=== PATIENT | female | born 1960 | race African-American/Black ===

== ENCOUNTER 2022-04-25 16:01 | Emergency (ER) | payer OTHER ==
[~2022-04-25] VITALS: Ht 157.5 cm; Wt 105.6 kg
[2022-04-25 16:56] LABS: Albumin 3.8 g/dL (3.4-5.0); BUN/Creatinine Ratio 15.4; Calcium 9.2 mg/dL (8.5-10.1); Potassium 3.5 mmol/L (3.5-5.1)
[2022-04-25 16:59] LABS: Bilirubin, Total 0.5 mg/dL (0.2-1.0); Total Protein 8.1 g/dL (6.4-8.2)
[2022-04-25] MEDS ORDERED: LABETALOL HCL 5 MG/ML 4ML SYRINGE IV ONE (17:00)
[2022-04-25 17:07] LABS: White Blood Cell 5.3 10^3/uL (4.4-10.8)
[2022-04-25 17:56] LABS: Basophils # (auto) 0 10 ^3/uL (0-0.2); Basophils % (auto) 0.8 % (0.0-2.0); Eosinophils # (auto) 0.1 10 ^3/uL (0-0.8); Eosinophils % (auto) 1.8 % (0.0-7.0); Hematocrit 42.7 % (36.0-46.0); Hemoglobin 14.2 g/dL (12.2-16.2); Lymphocytes # (auto) 1.9 10 ^3/uL (0.4-5.4); Lymphocytes % (auto) 34.9 % (10.0-50.0); Mean Corpuscular Hgb Conc. 33.1 g/dL (32.0-36.0); Mean Corpuscular Volume 81.6 fL (80.0-100.0); Monocytes # (auto) 0.4 10 ^3/uL (0-1.3); Monocytes % (auto) 7.1 % (0.0-12.0); Neutrophils % (auto) 55.4 % (37.0-80.0); Nucleated Red Blood Cells % 0.2 %; Red Blood Cells 5.24 10^6/uL (4.0-5.20); Red Cell Distribution Width 13.5 % (11.8-14.3)
[2022-04-25] MEDS ORDERED: METOPROLOL TARTRATE 25 MG TAB PO ONE (18:45)
[2022-04-25] MEDS ORDERED: HYDROcodone-ACET 5/325MG TAB PO ONE (19:15)
[2022-04-25 22:32] VITALS: BP 150/70
== END 2022-04-25 22:55 | disposition home or self-care (01) ==
LOC: ER 16:01
DX: S09.90XA Unspecified injury of head, initial encounter (principal); I10 Essential (primary) hypertension; Z88.0 Allergy status to penicillin; W19.XXXA Unspecified fall, initial encounter; Y93.89 Activity, other specified; Y92.89 Other specified places as the place of occurrence of the external cause; Y99.8 Other external cause status
CPT/HCPCS: 36415; 70450; 72125; 80053; 85025; 93005; 96374; 99285; J3490

== ENCOUNTER → 2023-02-11 | Outpatient (CLI) | payer BC ==
[2023-02-11 13:19] LABS: Basophils # (auto) 0 10 ^3/uL (0-0.2); Basophils % (auto) 0.9 % (0.0-2.0); Eosinophils # (auto) 0.1 10 ^3/uL (0-0.8); Eosinophils % (auto) 2.9 % (0.0-7.0); Hematocrit 40.4 % (36.0-46.0); Hemoglobin 13.3 g/dL (12.2-16.2); Lymphocytes # (auto) 1.3 10 ^3/uL (0.4-5.4); Lymphocytes % (auto) 27.3 % (10.0-50.0); Mean Corpuscular Hemoglobin 27.2 pg (28.0-32.0); Mean Corpuscular Hgb Conc. 32.8 g/dL (32.0-36.0); Mean Corpuscular Volume 82.8 fL (80.0-100.0); Monocytes # (auto) 0.4 10 ^3/uL (0-1.3); Neutrophils % (auto) 59.9 % (37.0-80.0); Nucleated Red Blood Cells % 0.1 %; Red Blood Cells 4.87 10^6/uL (4.0-5.20); Red Cell Distribution Width 13.1 % (11.8-14.3); White Blood Cell 4.9 10^3/uL (4.4-10.8)
[2023-02-11 13:25] LABS: Urine Bacteria NONE SEEN /hpf (None Seen); Urine Blood Negative /uL (Negative); Urine Clarity Clear (Clear); Urine Color Colorless (Yellow); Urine Protein, UAD Negative (Negative); Urine Specific Gravity 1.016 (1.001-1.035); Urine Urobilinogen Normal (Negative); Urine WBC <1 /hpf (0 - 5)
[2023-02-11 15:00] LABS: Alanine Aminotransferase 18 U/L (7-40); Alkaline Phosphatase 82 U/L (46-116); Anion Gap 4 (5-15); BUN/Creatinine Ratio 9.8 (10.0-20.0); Blood Urea Nitrogen 8 mg/dL (9-23); Calcium 8.9 mg/dL (8.5-10.1); Carbon Dioxide 29 mmol/L (20-30); Chloride 103 mmol/L (98-107); Glucose 256 mg/dL (74-106); Potassium 3.9 mmol/L (3.5-5.1); Sodium 136 mmol/L (136-145)
[2023-02-11 15:02] LABS: Albumin 4.3 g/dL (3.2-4.8); Aspartate Aminotransferase 13 U/L (13-40); Bilirubin, Total 0.6 mg/dL (0.2-1.0); Total Protein 7.3 g/dL (5.7-8.2)
[2023-02-11 16:09] LABS: Uric Acid 3.6 mg/dL (3.1-7.8)
[2023-02-11 16:11] LABS: Magnesium 2.1 mg/dL (1.6-2.6)
[2023-02-11 19:34] LABS: Folate (Folic Acid) 14.37 ng/mL (>5.38)
[2023-02-12 09:06] LABS: Triglycerides 87 mg/dL (< 150)
[2023-02-12 09:07] LABS: LDL Cholesterol 139 mg/dL (< 100)
[2023-02-12 09:08] LABS: Cholesterol 194 mg/dL (< 200); HDL Cholesterol 36 mg/dL (40-59)
== END | disposition home or self-care (01) ==
LOC: LAB 12:41
PROVIDERS: ATTEND Internal Medicine
DX: E61.9 Deficiency of nutrient element, unspecified (principal); R78.89 Finding of other specified substances, not normally found in blood; E78.9 Disorder of lipoprotein metabolism, unspecified; R68.89 Other general symptoms and signs; R94.6 Abnormal results of thyroid function studies; E79.0 Hyperuricemia without signs of inflammatory arthritis and tophaceous disease; R82.991 Hypocitraturia; E85.9 Amyloidosis, unspecified; R82.90 Unspecified abnormal findings in urine; R82.79 Other abnormal findings on microbiological examination of urine; D51.9 Vitamin B12 deficiency anemia, unspecified
CPT/HCPCS: 36415; 80053; 80061; 81001; 82306; 82607; 82746; 83036; 83735; 84443; 84550; 85025; 87086

== ENCOUNTER → 2023-07-22 | Outpatient (CLI) | payer BC ==
[2023-07-22 08:26] LABS: Basophils # (auto) 0 10 ^3/uL (0-0.2); Basophils % (auto) 0.9 % (0.0-2.0); Eosinophils # (auto) 0.1 10 ^3/uL (0-0.8); Eosinophils % (auto) 2.7 % (0.0-7.0); Hemoglobin 13.7 g/dL (12.2-16.2); Lymphocytes # (auto) 1.2 10 ^3/uL (0.4-5.4); Lymphocytes % (auto) 26.8 % (10.0-50.0); Mean Corpuscular Hemoglobin 27.5 pg (28.0-32.0); Mean Corpuscular Hgb Conc. 33.4 g/dL (32.0-36.0); Mean Corpuscular Volume 82.1 fL (80.0-100.0); Monocytes # (auto) 0.3 10 ^3/uL (0-1.3); Monocytes % (auto) 7.1 % (0.0-12.0); Neutrophils # (auto) 2.7 10 ^3/uL (1.6-8.6); Neutrophils % (auto) 62.5 % (37.0-80.0); Nucleated Red Blood Cells % 0.4 %; Red Cell Distribution Width 12.7 % (11.8-14.3); White Blood Cell 4.3 10^3/uL (4.4-10.8)
[2023-07-22 08:30] LABS: Urine Bacteria MANY /hpf (None Seen); Urine Blood Negative /uL (Negative); Urine Clarity Clear (Clear); Urine Color Light-Yellow (Yellow); Urine Protein, UAD Negative (Negative); Urine Specific Gravity 1.014 (1.001-1.035); Urine Urobilinogen Normal (Negative); Urine WBC 2 /hpf (0 - 5); Urine pH 6.5 (5.0-9.0)
[2023-07-22 09:04] LABS: Alanine Aminotransferase 12 U/L (7-40); Albumin 4.2 g/dL (3.2-4.8); Alkaline Phosphatase 94 U/L (46-116); Anion Gap 6 (5-15); Aspartate Aminotransferase 15 U/L (13-40); Blood Urea Nitrogen 12 mg/dL (9-23); Calcium 9.8 mg/dL (8.5-10.1); Carbon Dioxide 30 mmol/L (20-30); Chloride 105 mmol/L (98-107); Glucose 101 mg/dL (74-106); Sodium 141 mmol/L (136-145); Triglycerides 106 mg/dL (< 150)
[2023-07-22 09:05] LABS: Cholesterol 203 mg/dL (< 200); LDL Cholesterol 142 mg/dL (< 100)
[2023-07-22 09:06] LABS: Bilirubin, Total 0.6 mg/dL (0.2-1.0); HDL Cholesterol 35 mg/dL (40-59); Total Protein 7.5 g/dL (5.7-8.2)
[2023-07-22 13:36] LABS: Folate (Folic Acid) 12.5 ng/mL (>5.38)
== END | disposition home or self-care (01) ==
LOC: LAB 08:01
PROVIDERS: ATTEND Internal Medicine
DX: E79.0 Hyperuricemia without signs of inflammatory arthritis and tophaceous disease (principal); D51.9 Vitamin B12 deficiency anemia, unspecified; R82.90 Unspecified abnormal findings in urine; R82.79 Other abnormal findings on microbiological examination of urine; E55.9 Vitamin D deficiency, unspecified; R94.6 Abnormal results of thyroid function studies; R68.89 Other general symptoms and signs; R73.09 Other abnormal glucose; E61.2 Magnesium deficiency
CPT/HCPCS: 36415; 80053; 80061; 81001; 82306; 82607; 82746; 83036; 83735; 84443; 84550; 85025; 87086

== ENCOUNTER → 2024-04-14 | Outpatient (CLI) | payer BC ==
[2024-04-14 08:49] LABS: Basophils # (auto) 0 10 ^3/uL (0-0.2); Basophils % (auto) 0.9 % (0.0-2.0); Eosinophils # (auto) 0.1 10 ^3/uL (0-0.8); Hematocrit 42.2 % (36.0-46.0); Hemoglobin 13.9 g/dL (12.2-16.2); Lymphocytes # (auto) 1.5 10 ^3/uL (0.4-5.4); Lymphocytes % (auto) 32.5 % (10.0-50.0); Mean Corpuscular Hemoglobin 27.1 pg (28.0-32.0); Mean Corpuscular Hgb Conc. 32.8 g/dL (32.0-36.0); Mean Corpuscular Volume 82.5 fL (80.0-100.0); Monocytes # (auto) 0.6 10 ^3/uL (0-1.3); Monocytes % (auto) 12.3 % (0.0-12.0); Neutrophils # (auto) 2.3 10 ^3/uL (1.6-8.6); Neutrophils % (auto) 51.3 % (37.0-80.0); Nucleated Red Blood Cells % 0.1 %; Platelet Count (auto) 287 10^3/uL (140-450); Red Blood Cells 5.12 10^6/uL (4.0-5.20); Red Cell Distribution Width 13.3 % (11.8-14.3); White Blood Cell 4.5 10^3/uL (4.4-10.8)
[2024-04-14 09:46] LABS: Urine Bacteria MOD /hpf (None Seen); Urine Blood Negative /uL (Negative); Urine Clarity Clear (Clear); Urine Color Light-Yellow (Yellow); Urine Mucus FEW (None Seen); Urine Protein, UAD Negative (Negative); Urine Specific Gravity 1.016 (1.001-1.035); Urine Squamous Epithelial Cell FEW /hpf (<5); Urine Urobilinogen Normal (Negative); Urine WBC 1 /HPF (0-5)
[2024-04-14 09:55] LABS: Alanine Aminotransferase 17 U/L (7-40); Albumin 4.5 g/dL (3.2-4.8); Alkaline Phosphatase 95 U/L (46-116); Anion Gap 5 (5-15); Aspartate Aminotransferase 14 U/L (13-40); BUN/Creatinine Ratio 14.3 (10.0-20.0); Blood Urea Nitrogen 14 mg/dL (9-23); Calcium 9.5 mg/dL (8.7-10.4); Carbon Dioxide 29 mmol/L (20-31); Chloride 104 mmol/L (98-107); Cholesterol 153 mg/dL (< 200); Glucose 104 mg/dL (74-106); Magnesium 2.1 mg/dL (1.6-2.6); Potassium 3.9 mmol/L (3.5-5.1); Sodium 138 mmol/L (136-145); Triglycerides 68 mg/dL (< 150)
[2024-04-14 09:56] LABS: Bilirubin, Total 0.5 mg/dL (0.2-1.0); Total Protein 7.4 g/dL (5.7-8.2)
[2024-04-14 10:06] LABS: HDL Cholesterol 39 mg/dL (40-59); LDL Cholesterol 105 mg/dL (< 100)
[2024-04-14 10:36] LABS: Uric Acid 5.1 mg/dL (3.1-7.8)
[2024-04-14 10:44] LABS: Folate (Folic Acid) 13.35 ng/mL (>5.38)
== END | disposition home or self-care (01) ==
LOC: LAB 08:25
PROVIDERS: ATTEND Internal Medicine
DX: D51.9 Vitamin B12 deficiency anemia, unspecified (principal); E55.9 Vitamin D deficiency, unspecified; E61.2 Magnesium deficiency; E78.49 Other hyperlipidemia; R94.6 Abnormal results of thyroid function studies; R82.90 Unspecified abnormal findings in urine; R68.89 Other general symptoms and signs; R79.89 Other specified abnormal findings of blood chemistry; R82.998 Other abnormal findings in urine; R73.09 Other abnormal glucose; R94.4 Abnormal results of kidney function studies
CPT/HCPCS: 36415; 80053; 80061; 81001; 82306; 82607; 82746; 83036; 83735; 84443; 84550; 85025; 87086

== ENCOUNTER 2024-12-07 12:20 | Inpatient (IN) | payer BC ==
[~2024-12-07] VITALS: Ht 157.5 cm; Wt 113.6 kg
--- NOTE | 2024-12-07 12:59 | ED.PDOC ---
History of Present Illness HPI Comments 64 year old female presents to the ED with a chief complaint of abnormal labs onset today (12/07/24). Patient states she was at her pre-op appointment with Dr. Jefferson, EKG was done, was recommended to come to ED. EKG from Dr. Jefferson was showing a-fib RVR. Patient states she is currently experiencing headache, has no other complaints. She also states she was recently diagnosed with CHF, is currently taking Lasix. Denies chest pain, shortness of breath, fever, chills, nausea, vomiting, diarrhea. No other symptoms or modifying factors present at this time. Chief Complaint: Abnormal LAB's Time Seen by MD: 12:45 Reviewed Notes: Medications, Allergies Allergies: Coded Allergies: Penicillins (Verified Allergy, Unknown, 04/25/22) Information Source: Patient Mode of Arrival: Wheelchair Severity: Moderate Timing: Hours Duration: Since onset Prehospital treatment: 12 Lead EKG Past Medical History PAST MEDICAL HISTORY: CHF, HTN Surgical History: Denies all surgeries ECHOCARDIOGRAPHY RADIOLOGY TECHNOLOGIST History: No Pertinent ECHOCARDIOGRAPHY RADIOLOGY TECHNOLOGIST History Family History Family History: Reviewed,noncontributory to illness Social History Smoker: Non-Smoker Alcohol: Denies ETOH Use Drugs: Denies Drug Use Lives In: Home Constitutional: denies: chills, diaphoresis, fatigue, fever, malaise, sweats, weakness, others EENTM: denies: blurred vision, double vision, ear bleeding, ear discharge, ear drainage, ear pain, ear ringing, eye pain, eye redness, hearing loss, mouth pain, mouth swelling, nasal discharge, nose bleeding, nose congestion, nose pain, photophobia, tearing, throat pain, throat swelling, voice changes, others Respiratory: denies: cough, hemoptysis, orthopnea, SOB at rest, shortness of breath, SOB with excertion, stridor, wheezing, others Cardiovascular: denies: chest pain, dizzy spells, diaphoresis, Dyspnea on exertion, edema, irregular heart beat, left arm pain, lightheadedness, palpitations, PND, syncope, others Gastrointestinal: denies: abdomen distended, abdominal pain, blood streaked bowels, constipated, diarrhea, dysphagia, difficulty swallowing, hematemesis, melena, nausea, poor appetite, poor fluid intake, rectal bleeding, rectal pain, vomiting, others Genitourinary: denies: abnormal vagina bleeding, burning, dyspareunia, dysuria, flank pain, frequency, hematuria, incontinence, pain, , vagina dischar ge, urgency, others Neurological: reports: headache; denies: dizziness, fainting, left sided numbness, left sided weakness, numbness, paresthesia, pre-existing deficit, right sided numbness, right sided weakness, seizure, speech problems, tingling, tremors, weakness, others Musculoskeletal: denies: back pain, gout, joint pain, joint swelling, muscle pain, muscle stiffness, neck pain, others Integumetry: denies: bruises, change in color, change in hair/nails, dryness, laceration, lesions, lumps, rash, wounds, others Allergic/Immunocompromised: denies: Difficulty Healing, Frequent Infections, Hives, Itching, others Hematologic/Lymphatic: denies: anemia, blood clots, easy bleeding, easy bruising, swollen glands, others Endocrine: denies: excessive hunger, excessive sweating, excessive thirst, excessive urination, flushing, intolerance to cold, intolerance to heat, unexplained weight gain, unexplained weight loss, others Psychiatric: denies: anxiety, bipolar disorder, depression, hopeless, panic disorder, schizophrenia, sleepless, suicidal, others All Other Systems: Reviewed and Negative Physical Exam General Appearance: Other (Chronically ill-appearing) HEENT: Pharynx Normal Neck: Normal Inspection Respiratory: No Respiratory Distress Cardiovascular: No Edema Breast Exam: Deferred Gastrointestinal: Non Tender Genitalia: Deferred Pelvic: Deferred Rectal: Deferred Extremities: Leg edema Neurologic: Disoriented Cerebellar Function: NOT DONE Reflexes: NOT DONE Skin: Mottled Lymphatic: NOT DONE Was a procedure done? Was a procedure done?: No Differential Dx Considerations may include: Pacemaker malfunction, ACS, CVA X-Ray, Labs, Meds, VS Vital Signs Date Time Temp Pulse Resp B/P (MAP) Pulse Ox O2 Delivery O2 Flow Rate FiO2 12/07/24 12:30 131 18 139/76 98 Lab Test 12/07/24 14:48 12/07/24 13:19 Range/Units Troponin I High Sensitivity 4 4 </=34 ng/L White Blood Count 5.2 4.4-10.8 10^3/uL Red Blood Count 5.37 H 4.0-5.20 10^6/uL Hemoglobin 14.6 12.2-16.2 g/dL Hematocrit 43.8 36.0-46.0 % Mean Corpuscular Volume 81.4 80.0-100.0 fL Mean Corpuscular Hemoglobin 27.1 L 28.0-32.0 pg Mean Corpuscular Hemoglobin Concent 33.3 32.0-36.0 g/dL Red Cell Distribution Width 12.9 11.8-14.3 % Platelet Count 364 140-450 10^3/uL Mean Platelet Volume 8.7 6.9-10.8 fL Neutrophils (%) (Auto) 50.5 37.0-80.0 % Lymphocytes (%) (Auto) 37.3 10.0-50.0 % Monocytes (%) (Auto) 9.7 0.0-12.0 % Eosinophils (%) (Auto) 1.8 0.0-7.0 % Basophils (%) (Auto) 0.7 0.0-2.0 % Neutrophils # (Auto) 2.6 1.6-8.6 10 ^3/uL Lymphocytes # (Auto) 1.9 0.4-5.4 10 ^3/uL Monocytes # (Auto) 0.5 0-1.3 10 ^3/uL Eosinophils # (Auto) 0.1 0-0.8 10 ^3/uL Basophils # (Auto) 0 0-0.2 10 ^3/uL Nucleated Red Blood Cells 0.2 % Sodium Level 142 136-145 mmol/L Potassium Level 3.3 L 3.5-5.1 mmol/L Chloride Level 105 98-107 mmol/L Carbon Dioxide Level 26 20-31 mmol/L Anion Gap 11 5-15 Blood Urea Nitrogen 8 L 9-23 mg/dL Creatinine 0.85 0.550-1.02 mg/dL Glomerular Filtration Rate Calc 77 >90 mL/min BUN/Creatinine Ratio 9.4 L 10.0-20.0 Serum Glucose 86 74-106 mg/dL Calcium Level 8.9 8.7-10.4 mg/dL B-Type Natriuretic Peptide 238.51 0-100 pg/mL Time of 1ST Reevaluation: 13:15 Reevaluation 1ST: Unchanged Patient Education/Counseling: Diagnosis, Treatment, Prognosis Family Education/Counseling: No Family Present SEPSIS Sepsis Screen Date sepsis recognized/suspect: Dec 07, 2024 Time Sepsis recognized/suspect: 1230 Recent Procedure: No On Antibiotic Therapy: No Respiratory Rate >20: No Heart Rate >90: Yes Temp<36 C (96.8 F) or >38.3 C: No SBP <90 or MAP <65 mmHG: No New Acute Mental Status Change: No Is the patient on CPAP, BIPAP,: No Physician Orders Urinalysis (12/07/24 12:41) Chest Portable (12/07/24 12:41) Electrocardigram (12/07/24 12:41) Troponin-I Hs (12/07/24 15:41) Electrocardigram (12/07/24 13:41) Electrocardigram (12/07/24 15:41) Vital Signs Date Time Temp Pulse Resp B/P (MAP) Pulse Ox O2 Delivery O2 Flow Rate FiO2 12/07/24 12:30 131 18 139/76 98 Laboratory Tests Test 12/07/24 13:19 White Blood Count 5.2 10^3/uL (4.4-10.8) Departure 1 Departure Time of Disposition: 15:42 (Patient with concern for pacemaker malfunction. We will admit patient for further workup and expert consultation) Impression: Primary Impression: Generalized weakness Additional Impression: Pacemaker Disposition: 09 ADMITTED INPATIENT Admit to: Med Surg Condition: Guarded Critical Care Note Critical Care Time?: No Stability Stability form required: No I personally scribed for FREDDY FLORES MD ([email or web address]) on 12/07/24 at 12:59. Electronically submitted by Alaina Nieves ([email or web address]). FREDDY FLORES MD Dec 07, 2024 12:59
--- NOTE | 2024-12-07 13:23 | DVH ---
EXAM: XY CHEST PORTABLE Indication: afib Technique: Single frontal view of the chest was obtained Comparison: None FINDINGS: Lines and Tubes: None Lungs: No focal consolidation. Pleura: No effusion. No pneumothorax. Cardiomediastinal contours: Unremarkable. Atherosclerotic vascular calcifications of the thoracic ao rta are noted. Bones: No acute osseous abnormality. IMPRESSION: No acute cardiopulmonary disease.
[2024-12-07 14:07] LABS: Hematocrit 43.8 % (36.0-46.0); Hemoglobin 14.6 g/dL (12.2-16.2); Mean Corpuscular Hemoglobin 27.1 pg (28.0-32.0); Mean Corpuscular Volume 81.4 fL (80.0-100.0); Nucleated Red Blood Cells % 0.2 %
[2024-12-07 14:14] LABS: Chloride 105 mmol/L (98-107); Sodium 142 mmol/L (136-145)
[2024-12-07 14:15] LABS: Anion Gap 11 (5-15); Carbon Dioxide 26 mmol/L (20-31)
[2024-12-07 14:16] LABS: Calcium 8.9 mg/dL (8.7-10.4)
[2024-12-07 14:17] LABS: Potassium 3.3 mmol/L (3.5-5.1)
[2024-12-07 14:20] LABS: BUN/Creatinine Ratio 9.4 (10.0-20.0); Glucose 86 mg/dL (74-106)
[2024-12-07 14:23] LABS: Blood Urea Nitrogen 8 mg/dL (9-23)
--- NOTE | 2024-12-07 15:53 | ED.PDOC ---
Departure 1 Departure Time of Disposition: 15:42 (With the previous impressions were entered an air in the prior note. Patient presenting with a AFib with RVR. We will started on amnio drip and will be admitted to the hospital for further workup.) Impression: Primary Impression: Generalized weakness Additional Impression: Atrial fibrillation with RVR Disposition: ADMITTED INPATIENT Admit to: Tele Condition: Guarded Comments Patient with a AFib with RVR Authorized and Performed by: Freddy Blanco MD Total critical care time: Approximately 47 minutes Due to a high probability of clinically significant, life threatening deterioration, the patient required my highest level of preparedness to intervene emergently and I personally spent this critical care time directly and personally managing the patient. This critical care time included obtaining a history; examining the patient; pulse oximetry; ordering and review of studies; arranging urgent treatment with development of a management plan; evaluation of patient's response to treatment; frequent reassessment; and, discussions with other providers. This critical care time was performed to assess and manage the high probability of imminent, life-threatening deterioration that could result in multi-organ failure. It was exclusive of separately billable procedures and treating other patients and teaching time. Please see my other sections and the rest of the note for further information on patient assessment and treatment. FREDDY BLANCO MD Dec 07, 2024 15:53
[2024-12-07] MEDS: AMIODARONE BOLUS KIT 100 ML IV ONE (16:08)
[2024-12-07] MEDS: AMIODARONE 360mg/200mL PREMIX 200 ML IV ONE (16:33)
[2024-12-07 16:55] VITALS: PULSE 117; RESP 12; O2SAT 98
[2024-12-07] MEDS: ACETAMINOPHEN 325 MG TAB PO ONE (17:01)
[2024-12-07 19:31] VITALS: PULSE 109; PULSE 117; RESP 12; RESP 15; O2SAT 96; O2SAT 98
[2024-12-07] MEDS ORDERED: NITROGLYCERIN 0.4 MG SL TAB SL PRN (19:45)
[2024-12-07] MEDS ORDERED: MORPHINE SULFATE INJ 2 MG/ml SYRG IV PRN (19:45)
[2024-12-07] MEDS ORDERED: TEMAZEPAM 15 MG CAP PO PRN (19:45)
[2024-12-07] MEDS ORDERED: ONDANSETRON HCL 4 MG/2 ML VIAL IV PRN (19:45)
[2024-12-07] MEDS: POTASSIUM CHL 20 Meq TABLET PO ONE (19:45)
[2024-12-07] MEDS ORDERED: DEXTROSE (50%) 50ML SYRG IV PRN (19:45)
[2024-12-07 20:00] VITALS: PULSE 113
[2024-12-07] MEDS: ATORVASTATIN 20 MG TAB PO SCH (21:53)
--- NOTE | 2024-12-07 22:03 | DVHHP2 ---
History of Present Illness Reason for Visit: Irregular heart rate History of Present Illness 64-year-old female presents for evaluation of irregular heart rate. Patient reports doing a preop workup for a cyst removal when they did the EKG they noted she was in AFib with RVR in the 160s. Patient denies chest pain or palpitatio ns. No shortness a breath. Past Medical History Diabetes mellitus, hypertension,? CHF Past Surgical History Denies Family History Noncontributory Smoke: No ALCOHOL: none Drugs: None Lives: with Family Review of Systems Review of Systems Review of systems are currently negative otherwise addressed in HPI. Allergies: Coded Allergies: Penicillins (Verified Allergy, Unknown, 04/25/22) Medications Current Medications Medications Dose Ordered Sig/Ioana Route Start Time Stop Time Status Last Admin Dose Admin Amiodarone HCL/ Dextrose 200 ml @ 16.66 mls/ hr Q12H IV 12/07/24 22:15 Furosemide 40 mg DAILY PO 12/08/24 10:00 Amlodipine Besylate 5 mg BID PO 12/07/24 22:00 12/07/24 21:53 5 MG Atorvastatin Calcium 20 mg HS PO 12/07/24 22:00 12/07/24 21:53 20 MG Diagnostic Test (Pha) 1 strip ACHS 12/07/24 22:00 Insulin Human Regular ACHS SC 12/07/24 22:00 Dextrose 50 ml UD PRN IV 12/07/24 19:45 Temazepam 15 mg QHSP PRN PO 12/07/24 19:45 Ondansetron HCl 4 mg Q4HP PRN IV 12/07/24 19:45 Acetaminophen 650 mg Q6HP PRN PO 12/07/24 19:45 Nitroglycerin 0.4 mg Q5MINP PRN SL 12/07/24 19:45 Morphine Sulfate 2 mg Q30M PRN IV 12/07/24 19:45 Exam Vital Signs Vital Signs Date Time Temp Pulse Resp B/P (MAP) Pulse Ox O2 Delivery O2 Flow Rate FiO2 12/07/24 21:53 133/90 12/07/24 21:00 109 24 94 12/07/24 19:31 Room Air* 0 21 12/07/24 19:29 98.4 98.4 Exam Gen: 64-year-old female in mild distress Skin: Warm, dry, normal color and texture, no rash. HEENT: Normocephalic atraumatic, mucous membranes moist and pink. Neck: Cervical and supraclavicular nodes normal without enlargement, trachea is midline, thyroid gland is normal without masses. Pulmonary: Clear to auscultation and percussion bilaterally. Cardiac: Irregular rhythm Abdomen: Soft, nontender, nondistended, bowel sounds present all 4 quadrants, no guarding, no rigidity, no organomegaly. Extremities: No cyanosis, clubbing, no edema Neuro: Cranial nerves II through XII grossly intact, normal affect and speech, no focal motor deficits. Labs/Xrays ORDERING PHYSICIAN: FREDDY FLORES MD PROCEDURE(s): CXRP - CHEST PORTABLE REASON: afib ORDER NUMBER(s): [id number], ACCESSION NUMBER(s): [id number] EXAM: XY CHEST PORTABLE Indication: afib Technique: Single frontal view of the chest was obtained Comparison: None FINDINGS: Lines and Tubes: None Lungs: No focal consolidation. Pleura: No effusion. No pneumothorax. Cardiomediastinal contours: Unremarkable. Atherosclerotic vascular c alcifications of the thoracic aorta are noted. Bones: No acute osseous abnormality. IMPRESSION: No acute cardiopulmonary disease. Labs Test 12/07/24 17:01 12/07/24 13:19 Range/Units Troponin I High Sensitivity 4 </=34 ng/L White Blood Count 5.2 4.4-10.8 10^3/uL Red Blood Count 5.37 H 4.0-5.20 10^6/uL Hemoglobin 14.6 12.2-16.2 g/dL Hematocrit 43.8 36.0-46.0 % Mean Corpuscular Volume 81.4 80.0-100.0 fL Mean Corpuscular Hemoglobin 27.1 L 28.0-32.0 pg Mean Corpuscular Hemoglobin Concent 33.3 32.0-36.0 g/dL Red Cell Distribution Width 12.9 11.8-14.3 % Platelet Count 364 140-450 10^3/uL Mean Platelet Volume 8.7 6.9-10.8 fL Neutrophils (%) (Auto) 50.5 37.0-80.0 % Lymphocytes (%) (Auto) 37.3 10.0-50.0 % Monocytes (%) (Auto) 9.7 0.0-12.0 % Eosinophils (%) (Auto) 1.8 0.0-7.0 % Basophils (%) (Auto) 0.7 0.0-2.0 % Neutrophils # (Auto) 2.6 1.6-8.6 10 ^3/uL Lymphocytes # (Auto) 1.9 0.4-5.4 10 ^3/uL Monocytes # (Auto) 0.5 0-1.3 10 ^3/uL Eosinophils # (Auto) 0.1 0-0.8 10 ^3/uL Basophils # (Auto) 0 0-0.2 10 ^3/uL Nucleated Red Blood Cells 0.2 % Sodium Level 142 136-145 mmol/L Potassium Level 3.3 L 3.5-5.1 mmol/L Chloride Level 105 98-107 mmol/L Carbon Dioxide Level 26 20-31 mmol/L Anion Gap 11 5-15 Blood Urea Nitrogen 8 L 9-23 mg/dL Creatinine 0.85 0.550-1.02 mg/dL Glomerular Filtration Rate Calc 77 >90 mL/min BUN/Creatinine Ratio 9.4 L 10.0-20.0 Serum Glucose 86 74-106 mg/dL Calcium Level 8.9 8.7-10.4 mg/dL B-Type Natriuretic Peptide 238.51 0-100 pg/mL SEPSIS Sepsis Screen Date sepsis recognized/suspect: Dec 07, 2024 Time Sepsis recognized/suspect: 1930 Recent Procedure: No On Antibiotic Therapy: No Respiratory Rate >20: No Heart Rate >90: Yes Temp<36 C (96.8 F) or >38.3 C: No SBP <90 or MAP <65 mmHG: No New Acute Mental Status Change: No Is the patient on CPAP, BIPAP,: No Physician Orders Amiodarone 360mg/200ml Premix (Nexterone (12/07/24 16:15) Amiodarone 360mg/200ml Premix (Nexterone (12/07/24 22:15) Thyroid Stimulating Hormone (12/07/24 19:34) * Cardiology Consult (12/07/24 19:34) Furosemide Tablet (Lasix Tablet) (12/08/24 10:00) Amlodipine Tablet (Norvasc Tablet) (12/07/24 22:00) Atorvastatin (Lipitor) (12/07/24 22:00) Basic Metabolic Panel (12/08/24 04:00) Glucose Blood (Accu-Chek Comfort Curve T (12/07/24 22:00) Insulin R (Human) (Insulin R) (12/07/24 22:00) Dextrose 50% Syringe (12/07/24 19:45) Admit (12/07/24 19:34) Temazepam (Restoril) (12/07/24 19:45) Ondansetron Hcl (Zofran) (12/07/24 19:45) Cardiac Diet-2gna,Lofat,Lochol (12/08/24 Breakfast) Echo 2d Mode Cardiac Dop (12/07/24:34) Condition: Fair (12/07/24:34) Acetaminophen Tablet (Tylenol Tablet) (12/07/24 19:45) Bedrest With Bathroom Privileg (12/07/24:34) Nitroglycerin Sublingual (Ntrostat Subli (12/07/24 19:45) Morphine Sulfate Injection (12/07/24 19:45) Stat Ekg For Chest Pain (12/07/24:34) Notify Md Of Changes From Base (12/07/24:34) Community Health Advocate For 24 Hours (12/07/24:34) Emergency Dysrhythmia Protocol (12/07/24:34) Rhythm Strips Once Every Shift (12/07/24 19:34) Oxygen By Nasal Cannula (12/07/24:34) Vital Signs Date Time Temp Pulse Resp B/P (MAP) Pulse Ox O2 Delivery O2 Flow Rate FiO2 12/07/24 21:53 133/90 12/07/24 21:00 109 24 133/90 (104) 94 12/07/24 20:00 102 12/07/24 19:31 109 15 96 Room Air* 0 21 12/07/24 19:29 98.4 109 15 113/92 (99) 96 98.4 12/07/24 17:14 103 12/07/24 17:02 131 21 138/91 (107) 96 12/07/24 16:55 117 12 98 Room Air* 0 21 12/07/24 15:48 130/87 (101) Laboratory Tests Test 12/07/24 13:19 White Blood Count 5.2 10^3/uL (4.4-10.8) Medications Medications Dose Ordered Sig/Ioana Route Start Time Stop Time Status Last Admin Dose Admin Acetaminophen 650 mg ONCE ONCE PO 12/07/24 17:00 12/07/24 17:01 DC 12/07/24 17:01 650 MG Amiodarone HCl 100 ml @ 600 mls/hr ONCE ONCE IV 12/07/24 16:00 12/07/24 16:09 DC 12/07/24 16:08 600 MLS/HR Amiodarone HCL/ Dextrose 200 ml @ 33.33 mls/ hr ONCE ONCE IV 12/07/24 16:15 12/07/24 22:15 12/07/24 16:33 33.33 MLS/HR Amlodipine Besylate 5 mg BID PO 12/07/24 22:00 12/07/24 21:53 5 MG Atorvastatin Calcium 20 mg HS PO 12/07/24 22:00 12/07/24 21:53 20 MG Potassium Chloride 40 meq ONCE ONCE PO 12/07/24 19:45 12/07/24 19:57 DC 12/07/24 19:45 40 MEQ Assessment/Plan Assessment/Plan Assessment AFib with RVR Diabetes mellitus Hypertension Plan Admit the patient to telemetry to the hospitalist Cardiology consultation Continue amiodarone drip Resume home medications Continue treatment per orders. Plan discussed with: Patient My Orders Orders - NEERAJ CARD Procedure Category Date Status Time Thyroid Stimulating LAB 12/07/24 In Process Hormone 19:34 * Cardiology Consult CONS 12/07/24 Transmitted 19:34 Furosemide Tablet PHA 12/08/24 In Process (Lasix Tablet) 10:00 Amlodipine Tablet PHA 12/07/24 In Process (Norvasc Tablet) 22:00 Atorvastatin (Lipitor) PHA 12/07/24 In Process 22:00 Basic Metabolic Panel LAB 12/08/24 Verified 04:00 Glucose Blood PHA 12/07/24 In Process (Accu-Chek Comfort 22:00 Insulin R (Human) PHA 12/07/24 In Process (Insulin R) 22:00 Dextrose 50% Syringe PHA 12/07/24 In Process 19:45 Admit ADMIT 12/07/24 Transmitted 19:34 Temazepam (Restoril) PHA 12/07/24 In Process 19:45 Ondansetron Hcl PHA 12/07/24 In Process (Zofran) 19:45 Cardiac DIET 12/08/24 Transmitted Diet-2gna,Lofat,Lochol Breakfast Echo 2d Mode Cardiac US 12/07/24 Logged DOP 19:34 Condition: Fair [facility] 12/07/24 In Process 19:34 Acetaminophen Tablet PHA 12/07/24 In Process (Tylenol Tablet) 19:45 Bedrest With Bathroom [facility] 12/07/24 In Process Privileg 19:34 Nitroglycerin [facility] 12/07/24 In Process Sublingual (Ntrostat 19:45 Morphine Sulfate [facility] 12/07/24 In Process Injection 19:45 Stat Ekg For Chest [facility] 12/07/24 In Process Pain 19:34 Notify Md Of Changes [facility] 12/07/24 In Process From Base 19:34 Community Health Advocate For [facility] 12/07/24 In Process 24 Hours 19:34 Emergency Dysrhythmia [facility] 12/07/24 In Process Protocol 19:34 Rhythm Strips Once [facility] 12/07/24 In Process Every Shift 19:34 Oxygen By Nasal RT 12/07/24 Transmitted Cannula 19:34 Date of Service: Dec 07, 2024 Billing Provider: NEERAJ CARD Common Visit Codes: [id number] INP/OBS CARE (HIGH) NEERAJ CARD Dec 07, 2024 22:03
[2024-12-07] MEDS: AMIODARONE 360mg/200mL PREMIX 200 ML IV SCH (22:15)
[2024-12-07] MEDS: InsuLIN REG 1unit/0.01ml Soln (100units/ml) SC SCH (22:25)
[2024-12-07] MEDS: ACCU-CHEK COMFORT CURVE STRIP VI SCH (22:25)
[2024-12-07 22:34] VITALS: PULSE 105; RESP 20; TEMP 98.7; O2SAT 99
[2024-12-07 22:39] LABS: Triglycerides 81 mg/dL (< 150)
[2024-12-07 22:41] LABS: Cholesterol 141 mg/dL (< 200)
[2024-12-07 22:44] LABS: HDL Cholesterol 34 mg/dL (40-59)
[2024-12-07 23:12] LABS: Urine Protein, UAD Negative (Negative)
[2024-12-08] VITALS (8 sets, daily range): BP systolic 110–131; BP diastolic 71–89; PULSE 91–116; RESP 17–19; TEMP 97.5–98; O2SAT 96–98
[2024-12-08] MEDS ORDERED: TRIA0.5C TOP (05:17)
[2024-12-08] MEDS ORDERED: ATOR20TA50 PO (05:17)
[2024-12-08] MEDS ORDERED: UBRO50TA2 PO (05:17)
[2024-12-08] MEDS ORDERED: LISI40TA16 PO (05:17)
[2024-12-08] MEDS ORDERED: FURO40TA4 PO (05:17)
[2024-12-08] MEDS ORDERED: TACR0.1O7 TOP (05:17)
[2024-12-08] MEDS ORDERED: OMEP1CAP70 PO (05:17)
[2024-12-08] MEDS ORDERED: CICL80AE2 IN (05:17)
[2024-12-08] MEDS ORDERED: ALBU108A5 INH (05:17)
[2024-12-08] MEDS ORDERED: TIRZ5INJ (05:17)
[2024-12-08] MEDS ORDERED: AMLO1TAB22 PO (05:17)
[2024-12-08] MEDS ORDERED: ASPI1TAB20 PO (05:19)
[2024-12-08] MEDS ORDERED: TRIO1TP TOP (05:19)
[2024-12-08 07:18] LABS: Chloride 106 mmol/L (98-107); Potassium 3.9 mmol/L (3.5-5.1); Sodium 140 mmol/L (136-145)
[2024-12-08 07:19] LABS: Anion Gap 9 (5-15); Carbon Dioxide 25 mmol/L (20-31)
[2024-12-08 07:24] LABS: Glucose 101 mg/dL (74-106)
[2024-12-08 07:25] LABS: BUN/Creatinine Ratio 11.5 (10.0-20.0); Blood Urea Nitrogen 10 mg/dL (9-23); Calcium 8.6 mg/dL (8.7-10.4)
[2024-12-08] MEDS: FUROSEMIDE 40 MG TAB PO SCH (10:06)
[2024-12-08] MEDS ORDERED: METOPROLOL TARTRATE 25 MG TAB PO ONE (10:30)
--- NOTE | 2024-12-08 10:40 | DVHINCON2 ---
Date Seen: Dec 08, 2024 Referring Physician NEY To Reason for Consultation Afib History of Present Illness This is a 64-year-old female patient who presents to the emergency room after being sent from her preop evaluation. The patient reports that she is scheduled to undergo a cyst removal on her head with surgeon Dr. Jefferson. She states that she was at her preoperative appointment when a twelve lead electrocardiogram was done and revealed atrial fibrillation with rapid ventricular response. The patient denies any cardiac symptoms including chest pain, palpitations, shortness of breath, or dizziness. The patient states that she had no idea that her heart rate was that high or that she was in irregular rhythm because she had no symptoms. She was sent to the emergency room for further evaluation. The patient was initiated on an amiodarone drip by the emergency room provider. At the time of assessment, the patient remains in atrial fibrillation with heart rate in 110's on surveillance system monitor. Significant past medical history includes hypertension, dyslipidemia, prediabetes, asthma, breast cancer status post left mastectomy and right lumpectomy, and obesity. Past Medical History Past medical history reviewed. No other significant than mentioned above. Past Surgical History Left mastectomy in 2003 Thyroidectomy in 2004 Hysterectomy in 2006 Right lumpectomy in 2018 Family History: Hypertension G8 MOTHER Family History Family history reviewed. Social History Denies the use of tobacco, alcohol or illicit drugs. Allergies: Coded Allergies: Penicillins (Verified Allergy, Unknown, 04/25/22) Home Meds Reported Medications Aspirin (Aspir-81) 81 Mg Tab, 1 TAB PO DAILY, #90 TAB 1 Refill 12/08/24 Triamcinolone Acetonide (Kenalog) 1 Applic Ap, 1 APPLIC TOP 12/08/24 Ciclesonide (Alvesco) 80 Mcg/Act Aer, 80 MCG IN, AER 12/08/24 Triamcinolone Acetonide (Triamcinolone Acetonide) 0.5 % Cre, 1 APPLIC TOP, APPLIC 12/08/24 Lisinopril (Lisinopril) 40 Mg Tab, 1 TAB PO DAILY 12/08/24 Atorvastatin Calcium (ATORVASTATIN CALCIUM) 20 Mg Tab, 1 TAB PO DAILY 12/08/24 Amlodipine Besylate (Amlodipine Besylate) 5 Mg Tab, 1 TAB PO BID 12/08/24 Albuterol Sulfate (Albuterol Sulfate Hfa) 108 Mcg/Act Aer, INH 12/08/24 Ubrogepant (Ubrelvy) 50 Mg Tab, TAB PO 12/08/24 Tacrolimus (Tacrolimus) 0.1 % Oin, 1 APPLIC TOP BID 12/08/24 Furosemide (Furosemide) 40 Mg Tab, 1 TAB PO DAILY 12/08/24 Tirzepatide (Mounjaro) 5 Mg/0.5 Ml Inj 12/08/24 Omeprazole (Omeprazole Dr) 20 Mg Cap, 1 CAP PO DAILY 12/08/24 Home Meds Home medications reviewed. Current Medications Current Medications Medications (Trade) Dose Ordered Sig/Ioana Route PRN Reason Start Time Stop Time Status Last Admin Amiodarone HCL/ Dextrose 200 ml @ 16.66 mls/ hr Q12H IV 12/07/24 22:15 12/08/24 09:09 Furosemide (Lasix Tablet) 40 mg DAILY PO 12/08/24 10:00 12/08/24 10:06 Amlodipine Besylate (Norvasc Tablet) 5 mg BID PO 12/07/24 22:00 12/08/24 10:06 Atorvastatin Calcium (Lipitor) 20 mg HS PO 12/07/24 22:00 12/07/24 21:53 Diagnostic Test (Pha) (Accu-Chek Comfort Curve T) 1 strip ACHS 12/07/24 22:00 12/08/24 06:22 Insulin Human Regular (InsuLIN R) ACHS SC 12/07/24 22:00 12/07/24 22:25 Dextrose 50 ml UD PRN IV Blood Sugar LESS THAN 60 12/07/24 19:45 Temazepam (Restoril) 15 mg QHSP PRN PO FOR INSOMNIA 12/07/24 19:45 Ondansetron HCl (Zofran) 4 mg Q4HP PRN IV NAUSEA / VOMITING 12/07/24 19:45 Acetaminophen (Tylenol Tablet) 650 mg Q6HP PRN PO PAIN SCALE 1-3 OR TEMP>100.4 12/07/24 19:45 Nitroglycerin (Ntrostat Sublingual) 0.4 mg Q5MINP PRN SL FOR CHEST PAIN 12/07/24 19:45 Morphine Sulfate 2 mg Q30M PRN IV FOR CHEST PAIN 12/07/24 19:45 Review of Systems Constitutional: No symptom reported Ears, Nose, & Throat: No symptom reported Eyes: No symptom reported Neurological: No symptoms reported Pulmonary/Respiratory: No symptoms reported Cardiovascular: No symptom reported Gastrointestinal: No symptom reported Genitourinary: No symptom reported Musculoskeletal: No symptom reported Skin: No symptom reported Psychiatric: No symptom reported Endocrine: No symptom reported Hematologic/Lymphatic: No symptom reported Vital Signs Vital Signs Date Time Temp Pulse Resp B/P (MAP) Pulse Ox O2 Delivery O2 Flow Rate FiO2 12/08/24 10:06 110/89 12/08/24 09:00 97.5 102 18 96 97.5 12/08/24 08:15 Room Air* 0 21 Physical Exam General Appearance: Cooperative. Obese Pulmonary/Respiratory: Clear, bilateral breaths sounds. Cardiovascular/Chest: Irregularly irregular rate and rhythm Peripheral Pulses: 2+ Radial (R). 2+ Radial (L). 2+ Pedal (R). 2+ Pedal (L) Abdominal Exam: Normal bowel sounds. Ankle Exam: Bilateral nonpitting ankle edema Lower extremities: Negative lower extremity edema Neuro/Mental Status: A/OX4, coherent. Thoughts/Psych: Normal thought pattern. Appropriate mood and affect. Good judgment and insight. Appearance: No acute distress. Skin Exam: Normal inspection. Normal color. Warm and dry. Labs/Diagnostic Data Labs Test 12/08/24 06:21 12/08/24 05:22 12/07/24 22:40 12/07/24 17:01 Range/Units POC Glucose 101 70-106 mg/dl Sodium Level 140 136-145 mmol/L Potassium Level 3.9 3.5-5.1 mmol/L Chloride Level 106 98-107 mmol/L Carbon Dioxide Level 25 20-31 mmol/L Anion Gap 9 5-15 Blood Urea Nitrogen 10 9-23 mg/dL Creatinine 0.87 0.550-1.02 mg/dL Glomerular Filtration Rate Calc 75 >90 mL/min BUN/Creatinine Ratio 11.5 10.0-20.0 Serum Glucose 101 74-106 mg/dL Calcium Level 8.6 L 8.7-10.4 mg/dL Urine Color Light-yellow Yellow Urine Clarity Clear Clear Urine pH 6.5 5.0-9.0 Urine Specific [place] 1.015 1.001-1.035 Urine Protein Negative Negative Urine Ketones Negative Negative Urine Blood Negative Negative /uL Urine Nitrite Negative Negative Urine Bilirubin Negative Negative Urine Urobilinogen Normal Negative mg/dL Urine Leukocyte Esterase Negative Negative /uL Urine RBC None seen 0 - 4 /hpf Urine Microscopic WBC 1 0-5 /HPF Urine Squamous Epithelial Cells Few <5 /hpf Urine Bacteria Few H None Seen /hpf Urine Hyaline Casts Few 0 - 2 /lpf Urine Glucose Normal Normal mg/dL Troponin I High Sensitivity 4 </=34 ng/L Thyroid Stimulating Hormone (TSH) 1.73 0.55-4.78 uIU/mL Test 12/07/24 14:48 12/07/24 13:19 Range/Units Triglycerides Level 81 < 150 mg/dL Cholesterol Level 141 < 200 mg/dL LDL Cholesterol 97 < 100 mg/dL HDL Cholesterol 34 L 40-59 mg/dL White Blood Count 5.2 4.4-10.8 10^3/uL Red Blood Count 5.37 H 4.0-5.20 10^6/uL Hemoglobin 14.6 12.2-16.2 g/dL Hematocrit 43.8 36.0-46.0 % Mean Corpuscular Volume 81.4 80.0-100.0 fL Mean Corpuscular Hemoglobin 27.1 L 28.0-32.0 pg Mean Corpuscular Hemoglobin Concent 33.3 32.0-36.0 g/dL Red Cell Distribution Width 12.9 11.8-14.3 % Platelet Count 364 140-450 10^3/uL Mean Platelet Volume 8.7 6.9-10.8 fL Neutrophils (%) (Auto) 50.5 37.0-80.0 % Lymphocytes (%) (Auto) 37.3 10.0-50.0 % Monocytes (%) (Auto) 9.7 0.0-12.0 % Eosinophils (%) (Auto) 1.8 0.0-7.0 % Basophils (%) (Auto) 0.7 0.0-2.0 % Neutrophils # (Auto) 2.6 1.6-8.6 10 ^3/uL Lymphocytes # (Auto) 1.9 0.4-5.4 10 ^3/uL Monocytes # (Auto) 0.5 0-1.3 10 ^3/uL Eosinophils # (Auto) 0.1 0-0.8 10 ^3/uL Basophils # (Auto) 0 0-0.2 10 ^3/uL Nucleated Red Blood Cells 0.2 % B-Type Natriuretic Peptide 238.51 0-100 pg/mL Assessment Atrial fibrillation with rapid ventricular response, new onset Rule out structural heart disease Hypertension Dyslipidemia Prediabetes History of breast cancer status post left mastectomy and right lumpectomy Obesity Plan/Recommendation We will continue following plan/recommendations (Dr. Lee): * Transthoracic echocardiogram to evaluate cardiac function * ?[id number] VASc score: 2 points, HAS-BLED score: 1 point * Initiate therapeutic Lovenox while inpatient, transition to DOAC prior to discharge * Initiate beta-jai for rate control * Amiodarone drip given unknown duration of AFib-------high risk for stroke with chemical cardioversion with unknown duration of Afib * Monitor and replete electrolytes as needed, keep potassium greater than four and magnesium greater than two * Close Cardiac surveillance Thank you for allowing us to care for this patient. Please call with any questions or concerns. Critical care time spent: 44 minutes This medical document was created using an electronic medical record system with voice recognition software and computerized dictation system. Although this document has been carefully reviewed, there might still be some phonetic and typographical errors. Occasional wrong-word or ``sound-alike substitutions may have occurred due to the inherent limitations of voice recognition software. These areas are purely typographical due to imperfections of the software programs and do not reflect any compromise in the patient's medical care. Please read the chart carefully and recognize, using context, where these substitutions have occurred. Plan discussed with: Patient NYHA Physical activity limitations: NA Date of Service: Dec 08, 2024 Billing Provider: MICHELLE MORRISON Cardiology Common Codes: 07558-[id number] INP/OBS CARE (High) Cardiology Consultation Codes: 51275-[id number] CONSULT <45MIN MICHELLE MORRISON Dec 08, 2024 10:40
[2024-12-08] MEDS: ENOXAPARIN SOD 120 MG/0.8 ML SYRINGE SC SCH (11:50)
[2024-12-08] MEDS: METOPROLOL TARTRATE 25 MG TAB PO ONE (11:50)
[2024-12-08] MEDS: MAGNESIUM SULFATE 1GM/100ML 100 ML IV ONE (11:59)
--- NOTE | 2024-12-08 13:19 | DVHPN2 ---
Reviewed: Care Plan, H&P, Labs, Medications, Previous Orders, Radiology Changes from previous H/P or p: No Changes Objective Vitals Vital Signs Date Time Temp Pulse Resp B/P (MAP) Pulse Ox O2 Delivery O2 Flow Rate FiO2 12/08/24 11:50 102 110/89 12/08/24 09:00 97.5 18 96 97.5 12/08/24 08:15 Room Air* 0 21 Intake/Output Intake and Output 12/08/24 07:00 Intake Total 1066.65 ml Balance 1066.65 ml Intake Oral 800 ml IV Total 266.65 ml # Voids 1 Medications Current Medications Medications Dose Ordered Sig/Ioana Route Start Time Stop Time Status Last Admin Dose Admin Furosemide 40 mg DAILY PO 12/08/24 10:00 12/08/24 10:06 40 MG Amlodipine Besylate 5 mg BID PO 12/07/24 22:00 12/08/24 10:06 5 MG Atorvastatin Calcium 20 mg HS PO 12/07/24 22:00 12/07/24 21:53 20 MG Diagnostic Test (Pha) 1 strip ACHS 12/07/24 22:00 12/08/24 11:56 1 STRIP Insulin Human Regular ACHS SC 12/07/24 22:00 12/08/24 11:55 2 UNITS Dextrose 50 ml UD PRN IV 12/07/24 19:45 Temazepam 15 mg QHSP PRN PO 12/07/24 19:45 Ondansetron HCl 4 mg Q4HP PRN IV 12/07/24 19:45 Acetaminophen 650 mg Q6HP PRN PO 12/07/24 19:45 Nitroglycerin 0.4 mg Q5MINP PRN SL 12/07/24 19:45 Morphine Sulfate 2 mg Q30M PRN IV 12/07/24 19:45 Metoprolol Tartrate 25 mg BID PO 12/08/24 22:00 Enoxaparin Sodium 110 mg Q12HR SC 12/08/24 22:00 UNV Enoxaparin Sodium 110 mg Q12H SC 12/08/24 11:15 12/08/24 11:50 110 MG Laboratory Results Laboratory Tests 12/07/24 13:19 12/08/24 05:22 Chemistry Test 12/07/24 13:19 12/08/24 05:22 Calcium Level 8.9 mg/dL (8.7-10.4) 8.6 mg/dL (8.7-10.4) L Magnesium Level 1.9 mg/dL (1.6-2.6) Lipid panel Test 12/07/24 14:48 Cholesterol Level 141 mg/dL (< 200) HDL Cholesterol 34 mg/dL (40-59) L Triglycerides Level 81 mg/dL (< 150) Cardiac Markers Test 12/07/24 13:19 B-Type Natriuretic Peptide 238.51 pg/mL (0-100) HgA1c, TSH Test 12/07/24 17:01 12/08/24 05:22 Thyroid Stimulating Hormone (TSH) 1.73 uIU/mL (0.55-4.78) Hemoglobin A1c 6.0 % A1C (<5.7) H Urinalysis Test 12/07/24 22:40 Urine Color Light-yellow (Yellow) Urine Clarity Clear (Clear) Urine pH 6.5 (5.0-9.0) Urine Specific [place] 1.015 (1.001-1.035) Urine Protein Negative (Negative) Urine Ketones Negative (Negative) Urine Blood Negative /uL (Negative) Urine Nitrite Negative (Negative) Urine Bilirubin Negative (Negative) Urine Urobilinogen Normal mg/dL (Negative) Urine Leukocyte Esterase Negative /uL (Negative) Urine RBC None seen /hpf (0 - 4) Urine Microscopic WBC 1 /HPF (0-5) Urine Squamous Epithelial Cells Few /hpf (<5) Urine Bacteria Few /hpf (None Seen) H Urine Hyaline Casts Few /lpf (0 - 2) Urine Glucose Normal mg/dL (Normal) Labs and/or images reviewed: Labs reviewed by me, Image(s) reviewed by me Assessment/Plan Assessment/Plan Atrial fibrillation with rapid ventricular response, new onset, therapeutic Lovenox, beta jai for rate control cardiology consult appreciated Amiodarone drip Rule out structural heart disease Hypertension Dyslipidemia Prediabetes History of breast cancer status post left mastectomy and right lumpectomy Obesity JESÚS Magaña at bedside Plan discussed with: Patient Date of Service: Dec 08, 2024 Billing Provider: GISELA MENCHACA MD Common Visit Codes: [id number] INP/OBS CARE(HIGH) GISELA MENCHACA MD Dec 08, 2024 13:18
[2024-12-08] MEDS: LOPERAMIDE HCL 2 MG CAP/TAB PO PRN (14:50)
--- NOTE | 2024-12-08 18:02 | DVHSR ---
APPROVED REPORT EXAM: Two-dimensional and M-mode echocardiogram with Doppler and color Doppler. Blood Pressure: 129/85 mmHg INDICATION AFIB RISK FACTORS Height: 62, Weight: 244 DIMENSIONS LVDd4.7 (3.8-5.7cm)LA (2D)5.1 (1.9-4.0cm)Aortic Root3.4 (2.0-3.7cm) LVDs3.3 (2.5-4.0cm)LA (MM) (1.9-4.0cm)Aortic Cusp Exc1.9 (1.5-2.0cm) EF (%) 56.0 (55-70%)Rt. Atrium5.1 (1.9-4.0cm)Asc. Aorta cm Mitral Valve MitralMitral Stenosis E wave0.79m/sMV Mean GR.mmHg A wavem/sMV Peak GR.73mmHg E/A ratio0.02D MVAcm2 Aortic Valve Aortic ValveAortic Stenosis V11.02m/Steve Mean GR.3mmHg V21.12m/Steve Peak GR.5mmHg LVOT Diameter2.1 (1.8-2.4cm)Doppler AVA3.15cm2 Pulmonic Valve V20.64m/s Tricuspid Valve TR Velocity2.50m/s [id number] Other Information Technically limited study due to body habitus. Conclusion LV EF IS 55% AND IS NORMAL MODERATLY DILATED RV WITH DYSKINESIS OF IVS BORDERLINE PULMONARY HYPERTENSION NORMAL VALVES NO EFFUSION
[2024-12-08] MEDS: METOPROLOL TARTRATE 25 MG TAB PO SCH (21:14)
--- NOTE | 2024-12-08 21:34 | DVHINCON2 ---
Date Seen: Dec 08, 2024 Referring Physician NEY To Reason for Consultation Afib History of Present Illness This is a 64-year-old female with a PMH of hypertension, dyslipidemia, prediabetes, asthma, breast cancer status post left mastectomy and right lumpectomy, and obesity who presents to the emergency room after being sent from her preop evaluation. The patient reports that she is scheduled to undergo a cyst removal on her head with surgeon Dr. Jfeferson. She states that she was at her preoperative appointment when a twelve lead electrocardiogram was done and revealed atrial fibrillation with rapid ventricular response The patient denies any cardiac symptoms including chest pain, palpitations, shortness of breath, or dizziness. The patient states that she had no idea that her heart rate was that high or that she was in irregular rhythm because she had no symptoms. She was sent to the emergency room for further evaluation. The patient was initiated on an amiodarone drip by the emergency room provider. At the time of assessment, the patient remains in atrial fibrillation with heart rate in 110's on cardiac exercise specialist. Patient was admitted to the hospital. I am asked to consult on this patient. Past Medical History Past medical history reviewed. No other significant than mentioned above. Past Surgical History Left mastectomy in 2004 Thyroidectomy in 2005 Hysterectomy in 2007 Right lumpectomy in 2018 Family History: Hypertension G8 MOTHER Allergies: Coded Allergies: Penicillins (Verified Allergy, Unknown, 04/25/22) Home Meds Reported Medications Aspirin (Aspir-81) 81 Mg Tab, 1 TAB PO DAILY, #90 TAB 1 Refill 12/08/24 Triamcinolone Acetonide (Kenalog) 1 Applic Ap, 1 APPLIC TOP 12/08/24 Ciclesonide (Alvesco) 80 Mcg/Act Aer, 80 MCG IN, AER 12/08/24 Triamcinolone Acetonide (Triamcinolone Acetonide) 0.5 % Cre, 1 APPLIC TOP, APPLIC 12/08/24 Lisinopril (Lisinopril) 40 Mg Tab, 1 TAB PO DAILY 12/08/24 Atorvastatin Calcium (ATORVASTATIN CALCIUM) 20 Mg Tab, 1 TAB PO DAILY 12/08/24 Amlodipine Besylate (Amlodipine Besylate) 5 Mg Tab, 1 TAB PO BID 12/08/24 Albuterol Sulfate (Albuterol Sulfate Hfa) 108 Mcg/Act Aer, INH 12/08/24 Ubrogepant (Ubrelvy) 50 Mg Tab, TAB PO 12/08/24 Tacrolimus (Tacrolimus) 0.1 % Oin, 1 APPLIC TOP BID 12/08/24 Furosemide (Furosemide) 40 Mg Tab, 1 TAB PO DAILY 12/08/24 Tirzepatide (Mounjaro) 5 Mg/0.5 Ml Inj 12/08/24 Omeprazole (Omeprazole Dr) 20 Mg Cap, 1 CAP PO DAILY 12/08/24 Current Medications Current Medications Medications (Trade) Dose Ordered Sig/Ioana Route PRN Reason Start Time Stop Time Status Last Admin Amiodarone HCL/ Dextrose 200 ml @ 16.66 mls/ hr Q12H IV 12/07/24 22:15 12/08/24 10:19 DC 12/08/24 09:09 Furosemide (Lasix Tablet) 40 mg DAILY PO 12/08/24 10:00 12/08/24 10:06 Amlodipine Besylate (Norvasc Tablet) 5 mg BID PO 12/07/24 22:00 12/08/24 21:13 Atorvastatin Calcium (Lipitor) 20 mg HS PO 12/07/24 22:00 12/08/24 21:13 Diagnostic Test (Pha) (Accu-Chek Comfort Curve T) 1 strip ACHS 12/07/24 22:00 12/08/24 21:23 Insulin Human Regular (InsuLIN R) ACHS SC 12/07/24 22:00 12/08/24 21:18 Metoprolol Tartrate (Lopressor Tablet) 25 mg BID PO 12/08/24 22:00 12/08/24 21:14 Enoxaparin Sodium (Lovenox) 110 mg Q12HR SC 12/08/24 22:00 UNV Enoxaparin Sodium (Lovenox) 110 mg Q12H SC 12/08/24 11:15 12/08/24 11:50 Loperamide HCl (Imodium Capsule) 2 mg PRN PRN PO FOR DIARRHEA 12/08/24 14:15 12/08/24 14:50 Review of Systems Constitutional: No symptom reported Ears, Nose, & Throat: No symptom reported Eyes: No symptom reported Neurological: No symptoms reported Pulmonary/Respiratory: No symptoms reported Cardiovascular: No symptom reported Gastrointestinal: No symptom reported Genitourinary: No symptom reported Musculoskeletal: No symptom reported Skin: No symptom reported Psychiatric: No symptom reported Endocrine: No symptom reported Hematologic/Lymphatic: No symptom reported Vital Signs Vital Signs Date Time Temp Pulse Resp B/P (MAP) Pulse Ox O2 Delivery O2 Flow Rate FiO2 12/08/24 21:14 113 122/71 12/08/24 21:00 98.0 19 97 98.0 12/08/24 20:00 Room Air* 0 21 Physical Exam GENERAL: Alert and oriented x 3. No acute distress. Obese. EYES: PERRL, EOMI. Anicteric. HENT: Moist mucous membranes. LUNGS: Clear to auscultation bilaterally. CARDIOVASCULAR: Regular rate and rhythm. ABDOMEN: Soft, non-tender and non-distended. EXTREMITIES: No edema. NEUROLOGIC: No focal neurological deficits. SKIN: Warm, dry. Labs/Diagnostic Data Labs Test 12/08/24 18:03 12/08/24 05:22 12/07/24 22:40 12/07/24 17:01 Range/Units POC Glucose 118 H 70-106 mg/dl Sodium Level 140 136-145 mmol/L Potassium Level 3.9 3.5-5.1 mmol/L Chloride Level 106 98-107 mmol/L Carbon Dioxide Level 25 20-31 mmol/L Anion Gap 9 5-15 Blood Urea Nitrogen 10 9-23 mg/dL Creatinine 0.87 0.550-1.02 mg/dL Glomerular Filtration Rate Calc 75 >90 mL/min BUN/Creatinine Ratio 11.5 10.0-20.0 Serum Glucose 101 74-106 mg/dL Hemoglobin A1c 6.0 H <5.7 % A1C Calcium Level 8.6 L 8.7-10.4 mg/dL Magnesium Level 1.9 1.6-2.6 mg/dL Urine Color Light-yellow Yellow Urine Clarity Clear Clear Urine pH 6.5 5.0-9.0 Urine Specific [place] 1.015 1.001-1.035 Urine Protein Negative Negative Urine Ketones Negative Negative Urine Blood Negative Negative /uL Urine Nitrite Negative Negative Urine Bilirubin Negative Negative Urine Urobilinogen Normal Negative mg/dL Urine Leukocyte Esterase Negative Negative /uL Urine RBC None seen 0 - 4 /hpf Urine Microscopic WBC 1 0-5 /HPF Urine Squamous Epithelial Cells Few <5 /hpf Urine Bacteria Few H None Seen /hpf Urine Hyaline Casts Few 0 - 2 /lpf Urine Glucose Normal Normal mg/dL Troponin I High Sensitivity 4 </=34 ng/L Thyroid Stimulating Hormone (TSH) 1.73 0.55-4.78 uIU/mL Test 12/07/24 14:48 12/07/24 13:19 Range/Units Triglycerides Level 81 < 150 mg/dL Cholesterol Level 141 < 200 mg/dL LDL Cholesterol 97 < 100 mg/dL HDL Cholesterol 34 L 40-59 mg/dL White Blood Count 5.2 4.4-10.8 10^3/uL Red Blood Count 5.37 H 4.0-5.20 10^6/uL Hemoglobin 14.6 12.2-16.2 g/dL Hematocrit 43.8 36.0-46.0 % Mean Corpuscular Volume 81.4 80.0-100.0 fL Mean Corpuscular Hemoglobin 27.1 L 28.0-32.0 pg Mean Corpuscular Hemoglobin Concent 33.3 32.0-36.0 g/dL Red Cell Distribution Width 12.9 11.8-14.3 % Platelet Count 364 140-450 10^3/uL Mean Platelet Volume 8.7 6.9-10.8 fL Neutrophils (%) (Auto) 50.5 37.0-80.0 % Lymphocytes (%) (Auto) 37.3 10.0-50.0 % Monocytes (%) (Auto) 9.7 0.0-12.0 % Eosinophils (%) (Auto) 1.8 0.0-7.0 % Basophils (%) (Auto) 0.7 0.0-2.0 % Neutrophils # (Auto) 2.6 1.6-8.6 10 ^3/uL Lymphocytes # (Auto) 1.9 0.4-5.4 10 ^3/uL Monocytes # (Auto) 0.5 0-1.3 10 ^3/uL Eosinophils # (Auto) 0.1 0-0.8 10 ^3/uL Basophils # (Auto) 0 0-0.2 10 ^3/uL Nucleated Red Blood Cells 0.2 % B-Type Natriuretic Peptide 238.51 0-100 pg/mL Assessment Atrial fibrillation with rapid ventricular response, new onset. Rule out structural heart disease. Hypertension. Dyslipidemia. Prediabetes. History of breast cancer status post left mastectomy and right lumpectomy. Obesity. Plan/Recommendation I agree with your ongoing assessment and care of plan. Patient has been seen by Noris Juares NP on my behalf. We have discussed the plan with the patient. Transthoracic echocardiogram to evaluate cardiac function. ?[id number] VASc score: 2 points, HAS-BLED score: 1 point. Initiate therapeutic Lovenox while inpatient, transition to DOAC prior to discharge. Initiate beta-jai for rate control. Amiodarone drip given unknown duration of AFib-------high risk for stroke with chemical cardioversion with unknown duration of Afib. Monitor and replete electrolytes as needed, keep potassium greater than four and magnesium greater than two. Close Cardiac surveillance. Additional plan as per the hospita.l course. Plan discussed with: Patient NYHA Physical activity limitations: NA Date of Service: Dec 08, 2024 Billing Provider: KATELYNN RODRIGUEZ MD Cardiology Common Codes: [id number] INP/OBS CARE (High) Cardiology Consultation Codes: [id number] CONSULT <45MIN KATELYNN RODRIGUEZ MD Dec 08, 2024 21:34
[2024-12-08] MEDS ORDERED: ENOXAPARIN SOD 100 MG/1 ML SYRINGE SC SCH (22:00)
[2024-12-09] VITALS (8 sets, daily range): BP systolic 92–127; BP diastolic 63–83; PULSE 98–131; RESP 17–20; TEMP 98.1–98.7; O2SAT 92–100
[2024-12-09 07:21] LABS: Hematocrit 41.5 % (36.0-46.0); Hemoglobin 14.0 g/dL (12.2-16.2); Mean Corpuscular Hemoglobin 27.4 pg (28.0-32.0); Mean Corpuscular Volume 81.4 fL (80.0-100.0); Nucleated Red Blood Cells % 0.0 %
[2024-12-09 07:35] LABS: Alanine Aminotransferase 14 U/L (7-40); Albumin 3.6 g/dL (3.2-4.8); Alkaline Phosphatase 90 U/L (46-116); Anion Gap 7 (5-15); BUN/Creatinine Ratio 9.7 (10.0-20.0); Bilirubin, Total 0.6 mg/dL (0.2-1.0); Blood Urea Nitrogen 10 mg/dL (9-23); Carbon Dioxide 29 mmol/L (20-31); Chloride 105 mmol/L (98-107); Potassium 4.0 mmol/L (3.5-5.1); Sodium 141 mmol/L (136-145); Total Protein 6.5 g/dL (5.7-8.2)
[2024-12-09 07:46] LABS: Calcium 8.6 mg/dL (8.7-10.4); Glucose 109 mg/dL (74-106)
--- NOTE | 2024-12-09 08:27 | DVHPN2 ---
Reviewed: Care Plan, H&P, Labs, Medications, Previous Orders, Radiology Changes from previous H/P or p: No Changes Objective Vitals Vital Signs Date Time Temp Pulse Resp B/P (MAP) Pulse Ox O2 Delivery O2 Flow Rate FiO2 12/09/24 04:54 98.1 102 20 109/70 (83) 95 98.1 12/08/24 20:00 Room Air* 0 21 Intake/Output Intake and Output 12/09/24 07:00 Intake Total 2000 ml Balance 2000 ml Intake Oral 1900 ml IV Total 100 ml # Voids 9 # Bowel Movements 5 Medications Current Medications Medications Dose Ordered Sig/Ioana Route Start Time Stop Time Status Last Admin Dose Admin Furosemide 40 mg DAILY PO 12/08/24 10:00 12/08/24 10:06 40 MG Amlodipine Besylate 5 mg BID PO 12/07/24 22:00 12/08/24 21:13 5 MG Atorvastatin Calcium 20 mg HS PO 12/07/24 22:00 12/08/24 21:13 20 MG Diagnostic Test (Pha) 1 strip ACHS 12/07/24 22:00 12/09/24 06:08 1 STRIP Insulin Human Regular ACHS SC 12/07/24 22:00 12/08/24 21:18 3 UNITS Dextrose 50 ml UD PRN IV 12/07/24 19:45 Temazepam 15 mg QHSP PRN PO 12/07/24 19:45 Ondansetron HCl 4 mg Q4HP PRN IV 12/07/24 19:45 Acetaminophen 650 mg Q6HP PRN PO 12/07/24 19:45 Nitroglycerin 0.4 mg Q5MINP PRN SL 12/07/24 19:45 Morphine Sulfate 2 mg Q30M PRN IV 12/07/24 19:45 Metoprolol Tartrate 25 mg BID PO 12/08/24 22:00 12/08/24 21:14 25 MG Enoxaparin Sodium 110 mg Q12HR SC 12/08/24 22:00 UNV Enoxaparin Sodium 110 mg Q12H SC 12/08/24 11:15 12/08/24 22:51 110 MG Loperamide HCl 2 mg PRN PRN PO 12/08/24 14:15 12/08/24 14:50 2 MG Laboratory Results Laboratory Tests 12/09/24 05:20 Chemistry Test 12/09/24 05:20 Albumin 3.6 g/dL (3.2-4.8) Calcium Level 8.6 mg/dL (8.7-10.4) L Total Protein 6.5 g/dL (5.7-8.2) LFT Test 12/09/24 05:20 Alanine Aminotransferase (ALT) 14 U/L (7-40) Alkaline Phosphatase 90 U/L (46-116) Aspartate Amino Transferase (AST) 15 U/L (13-40) Total Bilirubin 0.6 mg/dL (0.2-1.0) Urinalysis Test 12/07/24 22:40 Urine Color Light-yellow (Yellow) Urine Clarity Clear (Clear) Urine pH 6.5 (5.0-9.0) Urine Specific [place] 1.015 (1.001-1.035) Urine Protein Negative (Negative) Urine Ketones Negative (Negative) Urine Blood Negative /uL (Negative) Urine Nitrite Negative (Negative) Urine Bilirubin Negative (Negative) Urine Urobilinogen Normal mg/dL (Negative) Urine Leukocyte Esterase Negative /uL (Negative) Urine RBC None seen /hpf (0 - 4) Urine Microscopic WBC 1 /HPF (0-5) Urine Squamous Epithelial Cells Few /hpf (<5) Urine Bacteria Few /hpf (None Seen) H Urine Hyaline Casts Few /lpf (0 - 2) Urine Glucose Normal mg/dL (Normal) Labs and/or images reviewed: Labs reviewed by me, Image(s) reviewed by me Assessment/Plan Assessment/Plan Atrial fibrillation with rapid ventricular response, new onset, therapeutic Lovenox, beta jai for rate control cardiology consult by Dr. Hu Lee appreciated appreciated, will convert Lovenox to Eliquis at the time of discharge, amiodarone discontinued Rule out structural heart disease ejection fraction 55 percent Hypertension Dyslipidemia Prediabetes History of breast cancer status post left mastectomy and right lumpectomy Obesity TSH normal JESÚS Agosto at bedside Plan discussed with: Patient My Orders Orders - GISELA MENCHACA MD Procedure Category Date Status Time Loperamide Capsule PHA 12/08/24 In Process (Imodium Capsule) 14:15 Date of Service: Dec 09, 2024 Billing Provider: GISELA MENCHACA MD Common Visit Codes: [id number] INP/OBS CARE(HIGH) GISELA MENCHACA MD Dec 09, 2024 08:27
--- NOTE | 2024-12-09 10:01 | DVHPN2 ---
Consult Progress Note Subjective Other Systems: Patient in atrial fibrillation with rate in low 110's on library monitor at time of assessment. She denies any cardiac symptoms. Objective vital signs Vital Sign Date Time Temp Pulse Resp B/P (MAP) Pulse Ox O2 Delivery O2 Flow Rate FiO2 12/09/24 08:50 98.7 114 18 126/81 (96) 100 98.7 12/08/24 20:00 Room Air* 0 21 Total Intake and Output 12/08/24 12/08/24 12/09/24 15:00 23:00 07:00 Intake Total 100 ml 1000 ml 900 ml Balance 100 ml 1000 ml 900 ml medications Current Medications Medications Dose Ordered Sig/Ioana Route Start Time Stop Time Status Last Admin Dose Admin Furosemide 40 mg DAILY PO 12/08/24 10:00 12/08/24 10:06 40 MG Amlodipine Besylate 5 mg BID PO 12/07/24 22:00 12/08/24 21:13 5 MG Atorvastatin Calcium 20 mg HS PO 12/07/24 22:00 12/08/24 21:13 20 MG Diagnostic Test (Pha) 1 strip ACHS 12/07/24 22:00 12/09/24 06:08 1 STRIP Insulin Human Regular ACHS SC 12/07/24 22:00 12/08/24 21:18 3 UNITS Dextrose 50 ml UD PRN IV 12/07/24 19:45 Temazepam 15 mg QHSP PRN PO 12/07/24 19:45 Ondansetron HCl 4 mg Q4HP PRN IV 12/07/24 19:45 Acetaminophen 650 mg Q6HP PRN PO 12/07/24 19:45 Nitroglycerin 0.4 mg Q5MINP PRN SL 12/07/24 19:45 Morphine Sulfate 2 mg Q30M PRN IV 12/07/24 19:45 Metoprolol Tartrate 25 mg BID PO 12/08/24 22:00 12/08/24 21:14 25 MG Enoxaparin Sodium 110 mg Q12HR SC 12/08/24 22:00 UNV Enoxaparin Sodium 110 mg Q12H SC 12/08/24 11:15 12/08/24 22:51 110 MG Loperamide HCl 2 mg PRN PRN PO 12/08/24 14:15 12/08/24 14:50 2 MG Examination: GENERAL:Normal, LUNGS:Normal, CVS:Abnormal (Atrial fibrillation), NEURO:Normal laboratory and microbiology Laboratory Tests 12/09/24 05:20 Test 12/09/24 05:20 Range/Units Serum Glucose 109 H 74-106 mg/dL Problem List/Assessment/Plan Problem List/Assessment/Plan Atrial fibrillation with rapid ventricular response, new onset, now with controlled rate Hypertension Dyslipidemia Prediabetes History of breast cancer status post left mastectomy and right lumpectomy Obesity Plan/Recommendation (Dr. Lee): * Transthoracic echocardiogram reveals EF 55%, RVSP 36 mmHg with moderately dilated RV * [id number] VASc score: 2 points, HAS-BLED score: 1 point * Continue therapeutic Lovenox while inpatient, transition to DOAC prior to discharge * Beta-jai for rate control, up titrate as tolerated * Amiodarone drip discontinued given unknown duration of AFib-------high risk for stroke with chemical cardioversion with unknown duration of Afib * Monitor and replete electrolytes as needed, keep potassium greater than four and magnesium greater than two * Close Cardiac surveillance There is no further inpatient cardiac workup indicated at this time. The patient has been scheduled to follow up with Cardiology in the outpatient setting with on 12/18/2024 at 8:00 a.m. Thank you for allowing us to care for this patient. Please call with any questions or concerns. This medical document was created using an electronic medical record system with voice recognition software and computerized dictation system. Although this document has been carefully reviewed, there might still be some phonetic and typographical errors. Occasional wrong-word or ``sound-alike substitutions may have occurred due to the inherent limitations of voice recognition software. These areas are purely typographical due to imperfections of the software programs and do not reflect any compromise in the patient's medical care. Please read the chart carefully and recognize, using context, where these substitutions have occurred. Plan discussed with: Patient Date of Service: Dec 09, 2024 Billing Provider: MICHELLE MORRISON Common Visit Codes: [id number] INP/OBS CARE(HIGH) MICHELLE MORRISON Dec 09, 2024 10:01
[2024-12-09] MEDS: METOPROLOL TARTRATE 50 MG TAB PO ONE (10:21)
[2024-12-09] MEDS: guaiFENesin-DM 100/10mg/5ml SYR PO PRN (18:44)
[2024-12-09] MEDS: ACETAMINOPHEN 325 MG TAB PO PRN (18:44)
--- NOTE | 2024-12-09 19:34 | DVHPN2 ---
Consult Progress Note Subjective Other Systems: Patient was seen and evaluated in follow up. Patient in atrial fibrillation with rate in low 110's on the hospital monitor at time of assessment. Patient denies any cardiac symptoms. [employer]ER 1.03, [place] 8.6. Telemetry reviewed. Objective vital signs Vital Sign Date Time Temp Pulse Resp B/P (MAP) Pulse Ox O2 Delivery O2 Flow Rate FiO2 12/09/24 13:00 98.4 98 20 127/83 (98) 93 98.4 12/09/24 08:30 Room Air* 0 21 Total Intake and Output 12/08/24 12/08/24 12/09/24 15:00 23:00 07:00 Intake Total 100 ml 1000 ml 900 ml Balance 100 ml 1000 ml 900 ml medications Current Medications Medications Dose Ordered Sig/Ioana Route Start Time Stop Time Status Last Admin Dose Admin Furosemide 40 mg DAILY PO 12/08/24 10:00 12/09/24 10:22 40 MG Amlodipine Besylate 5 mg BID PO 12/07/24 22:00 12/09/24 10:21 5 MG Atorvastatin Calcium 20 mg HS PO 12/07/24 22:00 12/08/24 21:13 20 MG Diagnostic Test (Pha) 1 strip ACHS 12/07/24 22:00 12/09/24 10:24 1 STRIP Insulin Human Regular ACHS SC 12/07/24 22:00 12/09/24 10:28 3 UNITS Dextrose 50 ml UD PRN IV 12/07/24 19:45 Temazepam 15 mg QHSP PRN PO 12/07/24 19:45 Ondansetron HCl 4 mg Q4HP PRN IV 12/07/24 19:45 Acetaminophen 650 mg Q6HP PRN PO 12/07/24 19:45 Nitroglycerin 0.4 mg Q5MINP PRN SL 12/07/24 19:45 Morphine Sulfate 2 mg Q30M PRN IV 12/07/24 19:45 Enoxaparin Sodium 110 mg Q12HR SC 12/08/24 22:00 UNV Enoxaparin Sodium 110 mg Q12H SC 12/08/24 11:15 12/09/24 10:22 110 MG Loperamide HCl 2 mg PRN PRN PO 12/08/24 14:15 12/08/24 14:50 2 MG Metoprolol Tartrate 50 mg BID PO 12/09/24 22:00 Examination: GENERAL:Normal, HEENT:Normal, NECK:Normal, LUNGS:Normal (Atrial fibrillation), LUNGS:Abnormal, CVS:Abnormal, ABDOMEN:Normal, MSK:Normal, SKIN:Normal, NEURO:Normal laboratory and microbiology Laboratory Tests 12/09/24 05:20 Test 12/09/24 05:20 Range/Units Serum Glucose 109 H 74-106 mg/dL Problem List/Assessment/Plan Problem List/Assessment/Plan Problem list Atrial fibrillation with rapid ventricular response, new onset, now with controlled rate. Hypertension. Dyslipidemia. Prediabetes. History of breast cancer status post left mastectomy and right lumpectomy. Obesity. Plan/Recommendation Continued all current supportive medical care. Patient has been seen by Noris Juares NP on my behalf. We have discussed the plan with the patient. Transthoracic echocardiogram reveals EF 55%, RVSP 36 mmHg with moderately dilated RV. [id number] VASc score: 2 points, HAS-BLED score: 1 point. Continue therapeutic Lovenox while inpatient, transition to DOAC prior to discharge. Beta-jai for rate control, up titrate as tolerated. Amiodarone drip discontinued given unknown duration of AFib-------high risk for stroke with chemical cardioversion with unknown duration of Afib. Monitor and replete electrolytes as needed, keep potassium greater than four and magnesium greater than two Close Cardiac surveillance. The patient has been scheduled to follow up with Cardiology in the outpatient setting with on 12/18/2024 at 8:00 a.m. Additional plan as per the hospital course. Plan discussed with: Patient Date of Service: Dec 09, 2024 Billing Provider: KATELYNN RODRIGUEZ MD Cardiology Common Codes: [id number] [facility] KATELYNN RODRIGUEZ MD Dec 09, 2024 15:02
[2024-12-09] MEDS: METOPROLOL TARTRATE 50 MG TAB PO SCH (22:10)
[2024-12-10] VITALS (8 sets, daily range): BP systolic 12–126; BP diastolic 68–77; PULSE 63–126; RESP 16–19; TEMP 97.7–98.6; O2SAT 94–97
--- NOTE | 2024-12-10 08:28 | DVHPN2 ---
Reviewed: Care Plan, H&P, Labs, Medications, Previous Orders, Radiology Changes from previous H/P or p: No Changes Objective Vitals Vital Signs Date Time Temp Pulse Resp B/P (MAP) Pulse Ox O2 Delivery O2 Flow Rate FiO2 12/10/24 05:00 98.5 105 18 126/76 (93) 97 98.5 12/09/24 20:00 Room Air* 0 21 Intake/Output Intake and Output 12/10/24 06:59 Intake Total 2140 ml Output Total 1300 ml Balance 840 ml Intake Oral 2140 ml Output Urine Total 1300 ml # Voids 6 Medications Current Medications Medications Dose Ordered Sig/Ioana Route Start Time Stop Time Status Last Admin Dose Admin Furosemide 40 mg DAILY PO 12/08/24 10:00 12/09/24 10:22 40 MG Amlodipine Besylate 5 mg BID PO 12/07/24 22:00 12/09/24 22:10 5 MG Atorvastatin Calcium 20 mg HS PO 12/07/24 22:00 12/09/24 22:10 20 MG Diagnostic Test (Pha) 1 strip ACHS 12/07/24 22:00 12/10/24 06:25 1 STRIP Insulin Human Regular ACHS SC 12/07/24 22:00 12/09/24 22:13 3 UNITS Dextrose 50 ml UD PRN IV 12/07/24 19:45 Temazepam 15 mg QHSP PRN PO 12/07/24 19:45 Ondansetron HCl 4 mg Q4HP PRN IV 12/07/24 19:45 Acetaminophen 650 mg Q6HP PRN PO 12/07/24 19:45 12/09/24 18:44 650 MG Nitroglycerin 0.4 mg Q5MINP PRN SL 12/07/24 19:45 Morphine Sulfate 2 mg Q30M PRN IV 12/07/24 19:45 Enoxaparin Sodium 110 mg Q12HR SC 12/08/24 22:00 UNV Enoxaparin Sodium 110 mg Q12H SC 12/08/24 11:15 12/09/24 22:57 110 MG Loperamide HCl 2 mg PRN PRN PO 12/08/24 14:15 12/08/24 14:50 2 MG Metoprolol Tartrate 50 mg BID PO 12/09/24 22:00 12/09/24 22:10 50 MG Guaifenesin/ Dextromethorphan 5 ml Q6HPRN PRN PO 12/09/24 17:45 12/10/24 07:58 5 ML Laboratory Results Laboratory Tests 12/09/24 05:20 Urinalysis Test 12/07/24 22:40 Urine Color Light-yellow (Yellow) Urine Clarity Clear (Clear) Urine pH 6.5 (5.0-9.0) Urine Specific [place] 1.015 (1.001-1.035) Urine Protein Negative (Negative) Urine Ketones Negative (Negative) Urine Blood Negative /uL (Negative) Urine Nitrite Negative (Negative) Urine Bilirubin Negative (Negative) Urine Urobilinogen Normal mg/dL (Negative) Urine Leukocyte Esterase Negative /uL (Negative) Urine RBC None seen /hpf (0 - 4) Urine Microscopic WBC 1 /HPF (0-5) Urine Squamous Epithelial Cells Few /hpf (<5) Urine Bacteria Few /hpf (None Seen) H Urine Hyaline Casts Few /lpf (0 - 2) Urine Glucose Normal mg/dL (Normal) Labs and/or images reviewed: Labs reviewed by me, Image(s) reviewed by me Assessment/Plan Assessment/Plan Atrial fibrillation with rapid ventricular response, new onset, therapeutic Lovenox, beta jai for rate control cardiology consult by Dr. Hu Lee appreciated appreciated, will convert Lovenox to Eliquis at the time of discharge, amiodarone discontinued Rule out structural heart disease ejection fraction 55 percent Hypertension Dyslipidemia Prediabetes History of breast cancer status post left mastectomy and right lumpectomy Obesity TSH normal JESÚS Matt at bedside Plan discussed with: Patient Date of Service: Dec 10, 2024 Billing Provider: GISELA MENCHACA MD Common Visit Codes: [id number] INP/OBS CARE(HIGH) GISELA MENCHACA MD Dec 10, 2024 08:28
[2024-12-10] MEDS: APIXABAN 5 MG TAB PO SCH (21:02)
--- NOTE | 2024-12-10 23:57 | DVHPN2 ---
Progress Note - Dictate Date Seen: Dec 10, 2024 Medical Necessity Reason Pt with a Central, PICC or Fol: No Subjective Patient was seen and evaluated in follow up. Patient is complaining of generalized discomfort. BS are in the 190's. Telemetry reviewed. vital signs Vital Sign Date Time Temp Pulse Resp B/P (MAP) Pulse Ox O2 Delivery O2 Flow Rate FiO2 12/10/24 17:00 98.6 109 18 105/74 (84) 96 98.6 12/10/24 08:00 Room Air* 0 21 Total Intake and Output 12/09/24 12/09/24 12/10/24 15:00 23:00 07:00 Intake Total 1000 ml 1140 ml Output Total 1300 ml Balance -300 ml 1140 ml medications Current Medications Medications Dose Ordered Sig/Ioana Route Start Time Stop Time Status Last Admin Dose Admin Furosemide 40 mg DAILY PO 12/08/24 10:00 12/10/24 09:15 40 MG Amlodipine Besylate 5 mg BID PO 12/07/24 22:00 12/10/24 09:14 5 MG Atorvastatin Calcium 20 mg HS PO 12/07/24 22:00 12/09/24 22:10 20 MG Diagnostic Test (Pha) 1 strip ACHS 12/07/24 22:00 12/10/24 17:00 1 STRIP Insulin Human Regular ACHS SC 12/07/24 22:00 12/10/24 17:44 3 UNITS Dextrose 50 ml UD PRN IV 12/07/24 19:45 Temazepam 15 mg QHSP PRN PO 12/07/24 19:45 Ondansetron HCl 4 mg Q4HP PRN IV 12/07/24 19:45 Acetaminophen 650 mg Q6HP PRN PO 12/07/24 19:45 12/09/24 18:44 650 MG Nitroglycerin 0.4 mg Q5MINP PRN SL 12/07/24 19:45 Morphine Sulfate 2 mg Q30M PRN IV 12/07/24 19:45 Enoxaparin Sodium 110 mg Q12HR SC 12/08/24 22:00 UNV Loperamide HCl 2 mg PRN PRN PO 12/08/24 14:15 12/08/24 14:50 2 MG Metoprolol Tartrate 50 mg BID PO 12/09/24 22:00 12/10/24 09:15 50 MG Guaifenesin/ Dextromethorphan 5 ml Q6HPRN PRN PO 12/09/24 17:45 12/10/24 17:42 5 ML Apixaban 5 mg BID PO 12/10/24 22:00 objective GENERAL: Alert and oriented x 3. No acute distress. EYES: PERRL, EOMI. Anicteric. HENT: Moist mucous membranes. LUNGS: Clear to auscultation bilaterally. CARDIOVASCULAR: Regular rate and rhythm. ABDOMEN: Soft, nontender and nondistended. EXTREMITIES: No edema. NEUROLOGIC: No focal neurological deficits. SKIN: Warm, dry. laboratory and microbiology Laboratory Tests 12/09/24 05:20 Test 12/09/24 05:20 Range/Units Serum Glucose 109 H 74-106 mg/dL Problem List Atrial fibrillation with rapid ventricular response, new onset, now with controlled rate. Hypertension. Dyslipidemia. Prediabetes. History of breast cancer status post left mastectomy and right lumpectomy. Obesity. Assessment/Plan Continued all current supportive medical care. Amlodipine. Eliquis. Lipitor, Metoprolol. Diuretics with Lasix. Nitro SL. Morphine for pain management. Additional plan as per the hospital course. Plan discussed with: Patient KATELYNN RODRIGUEZ MD Dec 10, 2024 19:12
[2024-12-11 05:00] VITALS: BP 125/83; PULSE 111; RESP 18; TEMP 97.8; O2SAT 96
[2024-12-11] MEDS ORDERED: APIX5TAB PO (07:53)
--- NOTE | 2024-12-11 07:55 | DVHPN2 ---
Reviewed: Care Plan, H&P, Labs, Medications, Previous Orders, Radiology Changes from previous H/P or p: No Changes Objective Vitals Vital Signs Date Time Temp Pulse Resp B/P (MAP) Pulse Ox O2 Delivery O2 Flow Rate FiO2 12/11/24 05:00 97.8 111 18 125/83 (97) 96 97.8 12/10/24 20:00 Room Air* 0 21 Intake/Output Intake and Output 12/11/24 07:00 Intake Total 1675 ml Balance 1675 ml Intake Oral 1675 ml # Voids 9 # Bowel Movements 14 Medications Current Medications Medications Dose Ordered Sig/Ioana Route Start Time Stop Time Status Last Admin Dose Admin Furosemide 40 mg DAILY PO 12/08/24 10:00 12/10/24 09:15 40 MG Amlodipine Besylate 5 mg BID PO 12/07/24 22:00 12/10/24 21:02 5 MG Atorvastatin Calcium 20 mg HS PO 12/07/24 22:00 12/10/24 21:02 20 MG Diagnostic Test (Pha) 1 strip ACHS 12/07/24 22:00 12/11/24 06:04 1 STRIP Insulin Human Regular ACHS SC 12/07/24 22:00 12/11/24 06:07 2 UNITS Dextrose 50 ml UD PRN IV 12/07/24 19:45 Temazepam 15 mg QHSP PRN PO 12/07/24 19:45 Ondansetron HCl 4 mg Q4HP PRN IV 12/07/24 19:45 Acetaminophen 650 mg Q6HP PRN PO 12/07/24 19:45 12/11/24 06:05 650 MG Nitroglycerin 0.4 mg Q5MINP PRN SL 12/07/24 19:45 Morphine Sulfate 2 mg Q30M PRN IV 12/07/24 19:45 Enoxaparin Sodium 110 mg Q12HR SC 12/08/24 22:00 UNV Loperamide HCl 2 mg PRN PRN PO 12/08/24 14:15 12/08/24 14:50 2 MG Metoprolol Tartrate 50 mg BID PO 12/09/24 22:00 12/10/24 21:02 50 MG Guaifenesin/ Dextromethorphan 5 ml Q6HPRN PRN PO 12/09/24 17:45 12/11/24 06:05 5 ML Apixaban 5 mg BID PO 12/10/24 22:00 12/10/24 21:02 5 MG Laboratory Results Laboratory Tests 12/09/24 05:20 Urinalysis Test 12/07/24 22:40 Urine Color Light-yellow (Yellow) Urine Clarity Clear (Clear) Urine pH 6.5 (5.0-9.0) Urine Specific [place] 1.015 (1.001-1.035) Urine Protein Negative (Negative) Urine Ketones Negative (Negative) Urine Blood Negative /uL (Negative) Urine Nitrite Negative (Negative) Urine Bilirubin Negative (Negative) Urine Urobilinogen Normal mg/dL (Negative) Urine Leukocyte Esterase Negative /uL (Negative) Urine RBC None seen /hpf (0 - 4) Urine Microscopic WBC 1 /HPF (0-5) Urine Squamous Epithelial Cells Few /hpf (<5) Urine Bacteria Few /hpf (None Seen) H Urine Hyaline Casts Few /lpf (0 - 2) Urine Glucose Normal mg/dL (Normal) Labs and/or images reviewed: Labs reviewed by me, Image(s) reviewed by me Assessment/Plan Assessment/Plan Atrial fibrillation with rapid ventricular response, new onset, treated with Lovenox converted to Eliquis, seen by Cardiology Dr. Lee Rule out structural heart disease ejection fraction 55 percent Hypertension Dyslipidemia Prediabetes History of breast cancer status post left mastectomy and right lumpectomy Obesity TSH normal RN Jody at bedside Patient feels better and wants to go home Plan discussed with: Patient My Orders Orders - GISELA MENCHACA MD Procedure Category Date Status Time Apixaban (Eliquis) PHA 12/10/24 In Process 22:00 Date of Service: Dec 11, 2024 Billing Provider: GISELA MENCHACA MD Common Visit Codes: [id number] INP/OBS CARE(HIGH) GISELA MENCHACA MD Dec 11, 2024 07:55
--- NOTE | 2024-12-11 07:58 | DVHDS2 ---
Discharge Summary Date of Admission Dec 07, 2024 at 19:34 Date of Discharge: Dec 11, 2024 Admitting Diagnosis Palpitations Wounds: None Labs/Diagnostic Data: Laboratory Results Test 12/11/24 05:58 12/09/24 05:20 12/08/24 05:22 12/07/24 22:40 POC Glucose 149 mg/dl (70-106) White Blood Count 4.8 10^3/uL (4.4-10.8) Red Blood Count 5.10 10^6/uL (4.0-5.20) Hemoglobin 14.0 g/dL (12.2-16.2) Hematocrit 41.5 % (36.0-46.0) Mean Corpuscular Volume 81.4 fL (80.0-100.0) Mean Corpuscular Hemoglobin 27.4 pg (28.0-32.0) Mean Corpuscular Hemoglobin Concent 33.7 g/dL (32.0-36.0) Red Cell Distribution Width 13.1 % (11.8-14.3) Platelet Count 303 10^3/uL (140-450) Mean Platelet Volume 9.0 fL (6.9-10.8) Neutrophils (%) (Auto) 52.6 % (37.0-80.0) Lymphocytes (%) (Auto) 33.4 % (10.0-50.0) Monocytes (%) (Auto) 9.9 % (0.0-12.0) Eosinophils (%) (Auto) 3.1 % (0.0-7.0) Basophils (%) (Auto) 1.0 % (0.0-2.0) Neutrophils # (Auto) 2.5 10 ^3/uL (1.6-8.6) Lymphocytes # (Auto) 1.6 10 ^3/uL (0.4-5.4) Monocytes # (Auto) 0.5 10 ^3/uL (0-1.3) Eosinophils # (Auto) 0.2 10 ^3/uL (0-0.8) Basophils # (Auto) 0 10 ^3/uL (0-0.2) Nucleated Red Blood Cells 0.0 % Sodium Level 141 mmol/L (136-145) Potassium Level 4.0 mmol/L (3.5-5.1) Chloride Level 105 mmol/L (98-107) Carbon Dioxide Level 29 mmol/L (20-31) Anion Gap 7 (5-15) Blood Urea Nitrogen 10 mg/dL (9-23) Creatinine 1.03 mg/dL (0.550-1.02) Glomerular Filtration Rate Calc 61 mL/min (>90) BUN/Creatinine Ratio 9.7 (10.0-20.0) Serum Glucose 109 mg/dL (74-106) Calcium Level 8.6 mg/dL (8.7-10.4) Total Bilirubin 0.6 mg/dL (0.2-1.0) Aspartate Amino Transferase (AST) 15 U/L (13-40) Alanine Aminotransferase (ALT) 14 U/L (7-40) Alkaline Phosphatase 90 U/L (46-116) Total Protein 6.5 g/dL (5.7-8.2) Albumin 3.6 g/dL (3.2-4.8) Hemoglobin A1c 6.0 % A1C (<5.7) Magnesium Level 1.9 mg/dL (1.6-2.6) Urine Color Light-yellow (Yellow) Urine Clarity Clear (Clear) Urine pH 6.5 (5.0-9.0) Urine Specific [place] 1.015 (1.001-1.035) Urine Protein Negative (Negative) Urine Ketones Negative (Negative) Urine Blood Negative /uL (Negative) Urine Nitrite Negative (Negative) Urine Bilirubin Negative (Negative) Urine Urobilinogen Normal mg/dL (Negative) Urine Leukocyte Esterase Negative /uL (Negative) Urine RBC None seen /hpf (0 - 4) Urine Microscopic WBC 1 /HPF (0-5) Urine Squamous Epithelial Cells Few /hpf (<5) Urine Bacteria Few /hpf (None Seen) Urine Hyaline Casts Few /lpf (0 - 2) Urine Glucose Normal mg/dL (Normal) Test 12/07/24 17:01 12/07/24 14:48 12/07/24 13:19 Troponin I High Sensitivity 4 ng/L (</=34) Thyroid Stimulating Hormone (TSH) 1.73 uIU/mL (0.55-4.78) Triglycerides Level 81 mg/dL (< 150) Cholesterol Level 141 mg/dL (< 200) LDL Cholesterol 97 mg/dL (< 100) HDL Cholesterol 34 mg/dL (40-59) B-Type Natriuretic Peptide 238.51 pg/mL (0-100) Other Laboratory Tests 12/09/24 05:20 Brief Hx & Hospital Course: 64-year-old female with a history of hypertension hypercholesterolemia prediabetes history of breast cancer status post left mastectomy and right lumpectomy obesity came in for palpitations. Found to have new onset AFib with a RVR treated with Lovenox converted to Eliquis seen by Cardiology Dr. Lee ejection fraction 55 percent patient feels better with a stable vital signs cleared for discharge by Cardiology discharged home on Eliquis she will follow up with the primary Dr and Dr. Lee Consults/Reason for consult Cardiology Dr. Hu Lee Operations or Procedures Echocardiogram Condition at Discharge: Fair Final Diagnosis/Problems List Atrial fibrillation with rapid ventricular response, new onset, treated with Lovenox converted to Eliquis, seen by Cardiology Dr. Lee Rule out structural heart disease ejection fraction 55 percent Hypertension Dyslipidemia Prediabetes History of breast cancer status post left mastectomy and right lumpectomy Obesity TSH normal Discharge Disposition: Home Discharge Instruct/Medications Diet: Cardiac 2g Na,low cholest Activity: Light activity Follow Up/Referral: Follow up with the primary Dr in one week Follow up with the Cardiology Dr. Hu Lee in two weeks Resume all previous home medications Use new medications as prescribed Medications: Eliquis 5 mg p.o. b.i.d. 180 Transmitted to the [facility] pharmacy Scheduled Amlodipine Besylate (Amlodipine Besylate), 1 TAB PO BID, (Reported) Apixaban Base (Eliquis), 5 MG PO BID Aspirin (Aspir-81), 1 TAB PO DAILY, (Reported) Atorvastatin Calcium (Atorvastatin Calcium), 1 TAB PO DAILY, (Reported) Furosemide (Furosemide), 1 TAB PO DAILY, (Reported) Lisinopril (Lisinopril), 1 TAB PO DAILY, (Reported) Omeprazole (Omeprazole ), 1 CAP PO DAILY, (Reported) Tacrolimus (Tacrolimus), 1 APPLIC TOP BID, (Reported) Miscellaneous Medications Albuterol Sulfate (Albuterol Sulfate Hfa), INH, (Reported) Ciclesonide (Alvesco), 80 MCG IN, (Reported) Tirzepatide (Mounjaro), (Reported) Triamcinolone Acetonide (Triamcinolone Acetonide), 1 APPLIC TOP, (Reported) Triamcinolone Acetonide (Kenalog), 1 APPLIC TOP, (Reported) Ubrogepant (Ubrelvy), TAB PO, (Reported) 35 (Time taken for discharge summary 35 minutes) Discharge Statement: "Patient was advised to return to the ER or call 911 if any headaches, dizziness, shortness of breath, chest pain, abdominal pain, bleeding, fevers, or worsening of medical condition. Patient was counseled about treatment plan, medications, possible side effects, patientverbalized understanding. All questions were answered to the best of my ability. This discharge took greater then 30 minutes in planning, reviewing documentation, counseling the patient, and discussing with other team members." ASSESSMENT ASSESSMENT Hospital Course Uneventful Assessment Atrial fibrillation with rapid ventricular response, new onset, treated with Lovenox converted to Eliquis, seen by Cardiology Dr. Lee Rule out structural heart disease ejection fraction 55 percent Hypertension Dyslipidemia Prediabetes History of breast cancer status post left mastectomy and right lumpectomy Obesity TSH normal Date of Service: Dec 11, 2024 Billing Provider: GISELA MENCHACA MD Common Visit Codes: 59057-WBA/OBS DISCH DAY >30min GISELA MENCHACA MD Dec 11, 2024 07:58
[2024-12-11 08:00] VITALS: PULSE 119; PULSE 96; RESP 17; O2SAT 98
[2024-12-11 09:00] VITALS: BP 110/80; PULSE 91; RESP 17; TEMP 98.5; O2SAT 98
[2024-12-11] MEDS ORDERED: METO-158 PO (09:24)
[2024-12-11 10:07] LABS: Potassium 4.1 mmol/L (3.5-5.1)
[2024-12-11 10:14] LABS: Magnesium 1.8 mg/dL (1.6-2.6)
[2024-12-11] MEDS: MAGNESIUM SULFATE 1GM/100ML 100 ML IV ONE (10:53)
[2024-12-11] MEDS: DIGOXIN (250MCG/ML) 2 ML AMPULE IV ONE (10:54)
[2024-12-11 12:10] VITALS: BP 110/80; PULSE 119; RESP 17; TEMP 98.1; O2SAT 98
--- NOTE | 2024-12-11 22:08 | DVHPN2 ---
Progress Note - Dictate Date Seen: Dec 11, 2024 Medical Necessity Reason Pt with a Central, PICC or Fol: No Subjective Patient was seen and evaluated in follow up. Patient has no new complaints at this time. Patient denies any cardiac symptoms. Patient is cardiac stable for discharge. Telemetry reviewed. vital signs Vital Sign Date Time Temp Pulse Resp B/P (MAP) Pulse Ox O2 Delivery O2 Flow Rate FiO2 12/11/24 10:54 119 12/11/24 09:03 110/80 12/11/24 09:00 98.5 17 98 98.5 12/11/24 08:00 Room Air* 0 21 Total Intake and Output 12/10/24 12/10/24 12/11/24 14:59 22:59 06:59 Intake Total 900 ml 775 ml Balance 900 ml 775 ml medications Current Medications Medications Dose Ordered Sig/Ioana Route Start Time Stop Time Status Last Admin Dose Admin Furosemide 40 mg DAILY PO 12/08/24 10:00 12/11/24 09:02 40 MG Amlodipine Besylate 5 mg BID PO 12/07/24 22:00 12/11/24 09:03 5 MG Atorvastatin Calcium 20 mg HS PO 12/07/24 22:00 12/10/24 21:02 20 MG Diagnostic Test (Pha) 1 strip ACHS 12/07/24 22:00 12/11/24 11:51 1 STRIP Insulin Human Regular ACHS SC 12/07/24 22:00 12/11/24 11:51 3 UNITS Dextrose 50 ml UD PRN IV 12/07/24 19:45 Temazepam 15 mg QHSP PRN PO 12/07/24 19:45 Ondansetron HCl 4 mg Q4HP PRN IV 12/07/24 19:45 Acetaminophen 650 mg Q6HP PRN PO 12/07/24 19:45 12/11/24 06:05 650 MG Nitroglycerin 0.4 mg Q5MINP PRN SL 12/07/24 19:45 Morphine Sulfate 2 mg Q30M PRN IV 12/07/24 19:45 Enoxaparin Sodium 110 mg Q12HR SC 12/08/24 22:00 UNV Loperamide HCl 2 mg PRN PRN PO 12/08/24 14:15 12/08/24 14:50 2 MG Metoprolol Tartrate 50 mg BID PO 12/09/24 22:00 12/11/24 09:02 50 MG Guaifenesin/ Dextromethorphan 5 ml Q6HPRN PRN PO 12/09/24 17:45 12/11/24 06:05 5 ML Apixaban 5 mg BID PO 12/10/24 22:00 12/11/24 09:03 5 MG objective GENERAL: Alert and oriented x 3. No acute distress. EYES: PERRL, EOMI. Anicteric. HENT: Moist mucous membranes. LUNGS: Clear to auscultation bilaterally. CARDIOVASCULAR: Regular rate and rhythm. ABDOMEN: Soft, nontender and nondistended. EXTREMITIES: No edema. NEUROLOGIC: No focal neurological deficits. SKIN: Warm, dry. laboratory and microbiology Laboratory Tests 12/11/24 09:30 12/09/24 05:20 Test 12/09/24 05:20 Range/Units Serum Glucose 109 H 74-106 mg/dL Problem List Atrial fibrillation with rapid ventricular response, new onset, now with controlled rate. Hypertension. Dyslipidemia. Prediabetes. History of breast cancer status post left mastectomy and right lumpectomy. Obesity. Assessment/Plan Continued all current supportive medical care. Amlodipine. Eliquis. Metoprolol. Diuretics with Lasix. Nitro SL. Morphine for pain management. Additional plan as per the hospital course. Plan discussed with: Patient KATELYNN RODRIGUEZ MD Dec 11, 2024 12:12
== END 2024-12-11 12:45 | disposition home or self-care (01) | DRG 309 ==
LOC: ER 12:20 → EEVIPCON 12:20 → OVERFLOW 19:34 → TELE-CENTR 22:34
PROVIDERS: ADMIT Family Medicine; ATTEND Family Medicine
DX: I48.91 Unspecified atrial fibrillation (principal); Z68.41 Body mass index [BMI] 40.0-44.9, adult; I11.0 Hypertensive heart disease with heart failure; I50.9 Heart failure, unspecified; E11.9 Type 2 diabetes mellitus without complications; E66.9 Obesity, unspecified; J45.909 Unspecified asthma, uncomplicated; E89.0 Postprocedural hypothyroidism; E78.00 Pure hypercholesterolemia, unspecified; Z88.0 Allergy status to penicillin; Z90.12 Acquired absence of left breast and nipple; Z90.710 Acquired absence of both cervix and uterus; Z85.3 Personal history of malignant neoplasm of breast; Z82.49 Family history of ischemic heart disease and other diseases of the circulatory system
CPT/HCPCS: 36415; 71045; 80048; 80053; 80061; 81001; 82962; 83036; 83735; 83880; 84132; 84443; 84484; 85025; 93306; 96365; 96368; 99291; G0378; J1815

== ENCOUNTER 2025-02-15 08:43 | Outpatient (CLI) | payer BC ==
[~2025-02-15 08:43] MED LIST: ALBU108A5 INH; AMLO1TAB22 PO; APIX5TAB PO; ASPI1TAB20 PO; ATOR20TA50 PO; CICL80AE2 IN; FURO40TA4 PO; LISI40TA16 PO; METO-158 PO; OMEP1CAP70 PO; TACR0.1O7 TOP; TIRZ5INJ; TRIA0.5C TOP; TRIO1TP TOP; UBRO50TA2 PO
--- NOTE | 2025-02-16 17:06 | DVHNC2 ---
Procedure - Date of service: February 15, 2025 Pulmonary function test interpretation: No obstructive or restrictive ventilatory defect. No significant bronchodilator response. FEV1 improved by 50 mL. Total lung capacity is below normal limits, 79 % of predicted (3.65 L). Mild reduction in diffusion capacity, not corrected for patient's hemoglobin; 74 % of predicted. Procedure Codes: CPT 23687-86 CPT 02890-91 CPT 78417-60 Visit Coding Pulmonary Billing Provider: GERALD CUEVAS MD Date of Service if different f: Feb 15, 2025 Common Visit Codes: PROCEDURE ONLY Pulmonary Procedure Codes: 26166-90- SPIROMETRY, 30092-16- LUNG VOLUME, 49925-40- DIFFUSION CAPACITY GERALD CUEVAS MD Feb 16, 2025 17:06
--- NOTE | 2025-02-16 17:08 | DVHNC2 ---
Procedure - Date of Service: February 15, 2025 6 Minutes walk test interpretation: Completed 6 minutes of ambulation. No reduction in distance walked. Expected heart rate achieved. No significant desaturation with exertion. Lowest O2 saturation was 93% on exertion. Procedure Code: CPT 06415-74 Visit Coding Pulmonary Billing Provider: GERALD CUEVAS MD Date of Service if different f: Feb 15, 2025 Common Visit Codes: PROCEDURE ONLY Pulmonary Procedure Codes: 45193-60- PULMONARY STRESS TESTING GERALD CUEVAS MD Feb 16, 2025 17:08
== END 2025-02-15 17:00 | disposition home or self-care (01) ==
LOC: RT 08:43
PROVIDERS: ATTEND Internal Medicine Pulmonary Disease
DX: R06.00 Dyspnea, unspecified (principal)
CPT/HCPCS: 94060; 94618; 94727; 94729